=== PATIENT | female | born 1960 | race African-American/Black ===

== ENCOUNTER → 2018-03-08 | Outpatient (CLI) | payer OTHER ==
[2014-11-26 11:00] VITALS: BP 130/84
[~2018-03-08] MED LIST: AMLO10TA6 PO; AZIT250T6 PO; BACL10TA PO; BACL20TA PO; CALC-299 PO; CALC-53 PO; CHLO500T53 PO; CLON0.1T PO; CLON0.2T PO; DOXY100C2 PO; DULO20CA PO; FLUT100D IH; FLUT1DIS3 IH; GABA-586 PO; GUAI600T47 PO; HYDR12.58 PO; LORA10TA68 PO; MECL25TA3 PO; METH-37 PO; MONT10TA9 PO; NAPR-683 PO; OXYB5TAB7 PO; PANT40TA3 PO; PRED10TA16 PO; PROAIR HFA8.5 GM INH; SERT100T PO; SERT50TA PO; SIMV10TA3 PO; SULF1TAB24 PO
--- NOTE | 2018-03-13 10:09 | KCIC ---
Bilateral digital screening mammograms: Reason for examination: Routine screening. Comparison is made to previous study dated 02/12/2014. Interpretation was made with the benefit of CAD. The skin and nipples show no abnormalities. No abnormal axillary lymph nodes are seen. The breast parenchyma is heterogeneously dense. (Breast density: Category C.) There are no dominant masses, suspicious calcifications or architectural distortion. There are benign secretory type calcifications present. Impression: No evidence of malignancy. Recommend routine screening. Your patient's mammogram demonstrates that she has dense breast tissue (breast density category C or D), which could hide abnormalities, and if she has other risk factors for breast cancer that have been identified, she might benefit from supplemental screening tests that may be suggested by you as her ordering physician. Dense breast tissue, in and of itself, is a relatively common condition. Therefore, this information is not provided to cause undue concern, but rather to raise your awareness and to promote discussion with your patient regarding the presence of other risk factors, in addition to dense breast tissue. Your patient's mammography results will be sent to her. BI-RAD Category 2: Benign. "Our facility is accredited by the [employer] Mammography Program." This patient's information has been entered into a reminder system for the patient to be notified with the results of her examination and a target date for the next mammogram. Electronically signed by: Sonam Cutler MD (03/13/2018 10:06 AM) [id number]
== END | disposition home or self-care (01) ==
LOC: KCIC MAMMO 12:34
PROVIDERS: ATTEND Internal Medicine
DX: Z12.31 Encounter for screening mammogram for malignant neoplasm of breast (principal)
CPT/HCPCS: 77067

== ENCOUNTER 2018-09-19 15:51 | Inpatient (IN) | payer OTHER ==
[~2018-09-19] VITALS: Ht 160 cm; Wt 114.0 kg
[~2018-09-19 15:51] MED LIST changes: +ALBU2.5V8 INH; -AMLO10TA6 PO; +AMLO10TA8 PO; -GABA-586 PO; +GABA300C18 PO; -PROAIR HFA8.5 GM INH
--- NOTE | 2018-09-19 16:13 | EKG ---
[facility] [address] [place] [address] Test Date: 2018-09-19 Test Time: 15:58:20 Pat Name: ERIBERTO OLEA Department: Room: Gender: F [employer]: : 1960 Requested By: JULES MCKOY Order Number: [id number] Reading MD: Lalit Santos MD Measurements Intervals [place] Rate: 64 P: 48 WA: 168 QRS: 19 QRSD: 84 T: 16 QT: 416 QTc: 433 Interpretive Statements SINUS RHYTHM Electronically Signed On 09-20-2018 22:17:42 CDT by Lalit Santos MD
--- NOTE | 2018-09-19 16:20 | PHYS DOC ---
Past Medical History Past Medical History: Anxiety, Bronchitis, Depression, Fibromyalgia, GERD, High Cholesterol, Hypertension (JULES MCKOY APRN) Past Surgical History: Other Additional Past Surgical Histo: NECK (DISC) REPAIR, recent colonoscopy (JULES MCKOY APRN) Alcohol Use: None Drug Use: None (JULES MCKOY APRN) Adult General Chief Complaint Chief Complaint: CHEST PAIN HPI HPI 57-year-old female presents to ER via POV for complaints of sudden onset of left-sided chest pain under her left breast which started one hour prior to arrival to ER. She reports she was at her father's doctor's appointment with him when the chest pain started. She was evaluated by the doctor in the office and had a nitroglycerin and aspirin 325 mg administered. EMS was called and she was told her heart rhythm looked okay. Patient states she had some improvement in pain following nitroglycerin. Initial blood pressure when pain started was 190/70 and after nitroglycerin right EMS her blood pressure dropped to 105/78 with heart rate of 76 per report sent with her by EMS. She opted to drive herself to the ER as her pain had somewhat improved. Patient denies shortness of air or abdominal pain. She reports she did have nausea during onset of pain denies any vomiting episodes. (JULES MCKOY APRN) Review of Systems Review of Systems Constitutional: Denies fever or chills [] Eyes: Denies change in visual acuity, redness, or eye pain [] HENT: Denies nasal congestion or sore throat [] Respiratory: Denies cough or shortness of breath [] Cardiovascular: Reports lt side CP radiating into lt side upper/mid back GI: Denies abdominal pain, vomiting, bloody stools or diarrhea. Reports nausea : Denies dysuria or hematuria [] Musculoskeletal: Denies joint pain. Reports lt upper/mid side back pain Integument: Denies rash or skin lesions [] Neurologic: Denies headache, focal weakness or sensory changes. Denies dizziness Endocrine: Denies polyuria or polydipsia [] All other systems were reviewed and found to be within normal limits, except as documented in this note. (JULES MCKOY APRN) Current Medications Current Medications Current Medications Medications (Trade) Dose Ordered Sig/Keshia Start Time Stop Time Status Last Admin Dose Admin Fentanyl Citrate (Fentanyl 2ml Vial) 25 mcg 1X ONCE 09/19/18 16:45 09/19/18 16:46 DC 09/19/18 16:59 25 MCG (JOHNNIE HARMON MD) Allergies Allergies Allergies Coded Allergies Type Severity Reaction Last Updated Verified lisinopril Allergy Severe Anaphylaxis 11/26/14 Yes ciprofloxacin Allergy Intermediate Rash 11/26/14 Yes (JOHNNIE HARMON MD) Physical Exam Physical Exam Constitutional: Well developed, well nourished, no acute distress, non-toxic appearance. [] HENT: Normocephalic, atraumatic, oropharynx moist, nose normal. [] Eyes: Pupils equal, conjunctiva normal, no discharge. [] Neck: Normal range of motion, no tenderness, supple, no stridor. [] Cardiovascular: Heart rate regular rhythm, no murmur [] Lungs & Thorax: Bilateral breath sounds clear to auscultation. Resp. equa l/nonlabored Abdomen: Bowel sounds normal, soft/obese, no tenderness, no masses, no pulsatile masses. [] Skin: Warm, dry, no erythema, no rash. [] Back: No tenderness, no CVA tenderness. [] Extremities: No tenderness, no cyanosis, no clubbing, ROM intact, no edema. 2+ bilat. radial. 2+ bilat. dorsalis pedis/posterior tibial Neurologic: Alert and oriented X 3, normal motor function, normal sensory function, no focal deficits noted. [] Psychologic: Affect normal, judgement normal, mood normal. [] (REFFITT,JULES Dyer APRN) Current Patient Data Vital Signs Vital Signs Date Time Temp Pulse Resp B/P (MAP) Pulse Ox O2 Delivery O2 Flow Rate FiO2 09/19/18 16:30 80 167/73 (104) 96 Room Air 09/19/18 15:55 98.9 16 98.9 (JOHNNIE HARMON MD) Lab Values Laboratory Tests Test 09/19/18 16:25 Urine Collection Type Void Urine Color Yellow Urine Clarity Clear Urine pH 5.5 Urine Specific [place] 1.015 Urine Protein Negative mg/dL (NEG-TRACE) Urine Glucose (UA) Negative mg/dL (NEG) Urine Ketones (Stick) Negative mg/dL (NEG) Urine Blood Negative (NEG) Urine Nitrite Negative (NEG) Urine Bilirubin Negative (NEG) Urine Urobilinogen Dipstick 0.2 mg/dL (0.2 mg/dL) Urine Leukocyte Esterase Negative (NEG) Urine RBC 0 /HPF (0-2) Urine WBC Occ /HPF (0-4) Urine Squamous Epithelial Cells Few /LPF Urine Bacteria 0 /HPF (0-FEW) Urine Mucus Slight /LPF (JOHNNIE HARMON MD) Lab Values Laboratory Tests Test 09/19/18 16:25 09/19/18 17:20 Urine Collection Type Void Urine Color Yellow Urine Clarity Clear Urine pH 5.5 Urine Specific [place] 1.015 Urine Protein Negative mg/dL (NEG-TRACE) Urine Glucose (UA) Negative mg/dL (NEG) Urine Ketones (Stick) Negative mg/dL (NEG) Urine Blood Negative (NEG) Urine Nitrite Negative (NEG) Urine Bilirubin Negative (NEG) Urine Urobilinogen Dipstick 0.2 mg/dL (0.2 mg/dL) Urine Leukocyte Esterase Negative (NEG) Urine RBC 0 /HPF (0-2) Urine WBC Occ /HPF (0-4) Urine Squamous Epithelial Cells Few /LPF Urine Bacteria 0 /HPF (0-FEW) Urine Mucus Slight /LPF White Blood Count 4.0 x10^3/uL (4.0-11.0) Red Blood Count 5.21 x10^6/uL (3.50-5.40) Hemoglobin 14.5 g/dL (12.0-15.5) Hematocrit 42.8 % (36.0-47.0) Mean Corpuscular Volume 82 fL (79-100) Mean Corpuscular Hemoglobin 28 pg (25-35) Mean Corpuscular Hemoglobin Concent 34 g/dL (31-37) Red Cell Distribution Width 14.8 % (11.5-14.5) H Platelet Count 169 x10^3/uL (140-400) Neutrophils (%) (Auto) 50 % (31-73) Lymphocytes (%) (Auto) 36 % (24-48) Monocytes (%) (Auto) 11 % (0-9) H Eosinophils (%) (Auto) 2 % (0-3) Basophils (%) (Auto) 1 % (0-3) Neutrophils # (Auto) 2.0 x10^3uL (1.8-7.7) Lymphocytes # (Auto) 1.5 x10^3/uL (1.0-4.8) Monocytes # (Auto) 0.4 x10^3/uL (0.0-1.1) Eosinophils # (Auto) 0.1 x10^3/uL (0.0-0.7) Basophils # (Auto) 0.0 x10^3/uL (0.0-0.2) Sodium Level 144 mmol/L (136-145) Potassium Level 3.4 mmol/L (3.5-5.1) L Chloride Level 105 mmol/L (98-107) Carbon Dioxide Level 27 mmol/L (21-32) Anion Gap 12 (6-14) Blood Urea Nitrogen 13 mg/dL (7-20) Creatinine 1.0 mg/dL (0.6-1.0) Estimated GFR (Cockcroft-Gault) 68.7 BUN/Creatinine Ratio 13 (6-20) Glucose Level 91 mg/dL (70-99) Calcium Level 9.4 mg/dL (8.5-10.1) Magnesium Level 2.3 mg/dL (1.8-2.4) Total Bilirubin 0.3 mg/dL (0.2-1.0) Aspartate Amino Transferase (AST) 15 U/L (15-37) Alanine Aminotransferase (ALT) 15 U/L (14-59) Alkaline Phosphatase 64 U/L (46-116) Troponin I Quantitative < 0.017 ng/mL (0.000-0.055) Total Protein 6.8 g/dL (6.4-8.2) Albumin 3.9 g/dL (3.4-5.0) Albumin/Globulin Ratio 1.3 (1.0-1.7) Laboratory Tests 09/19/18 17:20 Laboratory Tests 09/19/18 17:20 (JULES MCKOY APRN) EKG EKG EKG obtained 09/19/18 at [address] Harmon Sinus rhythm Rate 64 No STEMI (JULES MCKOY APRN) Radiology/Procedures Radiology/Procedures PROCEDURE: CHEST PA & LATERAL PA and lateral chest radiographs 09/19/2018 CLINICAL HISTORY: Left-sided chest pain. PA and lateral digital radiographs of chest were obtained. Comparison study is dated 11/24/2014. The cardiac silhouette is normal in size. The thoracic aorta is tortuous. Calcified left hilar lymph nodes are again seen. No acute pulmonary infiltrate is noted. No pneumothorax or pleural effusion is seen. Mild degenerative changes are seen involving the thoracic spine. IMPRESSION: No acute abnormality is seen. Electronically signed by: Abdirahman Kimball MD (09/19/2018 5:53 PM) [facility] DICTATED and SIGNED BY: ABDIRAHMAN KIMBALL MD DATE: 09/19/18 3886 (JULES MCKOY APRN) Course & Med Decision Making Course & Med Decision Making Pertinent Labs and Imaging studies reviewed. (See chart for details) Pt was evaluated in the ER for complaints of sudden onset left-sided chest pain which started an hour before arriving to ER. Patient states pain did radiate up into the left side of her back. Patient had chest x-ray with no acute findings. EKG with no acute ST elevation or STEMI. Initial troponin was negative. Discu ssed admission for serial cardiac enzymes patient was agreeable with this plan. Patient was given aspirin dose prior to arrival. Patient had nitroglycerin prior to arrival which significantly dropped her blood pressure from 190 systolic to 105. Dose of fentanyl was provided while in the ER for pain. Patient states she has had improvement in comfort. Patient has been nontoxic in appearance. Will ad tino to hospitalist for further care and monitoring. 1735: Spoke with Dr. Shin, hospitalist and discussed pt's case and admit plan for serial cardiac enzymes/further monitoring. HEART score 3. (JULES MCKOY APRN) Course & Med Decision Making This patient was seen by an BECKA. I did not see or treat the patient unless otherwise specified. (JOHNNIE HARMON MD) Dragon Disclaimer Dragon Disclaimer This electronic medical record was generated, in whole or in part, using a voice recognition dictation system. (JULES MCKOY APRN) Departure Departure Impression: Primary Impression: Chest pain Disposition: 09 ADMITTED INPATIENT Admitting Physician: Lissy Shin (JULES MCKOY APRN) Condition: STABLE Referrals: GAGE MALIK MD (PCP) JULES MCKOY APRN September 19, 2018 16:20 JOHNNIE HARMON MD September 20, 2018 13:58
[2018-09-19 16:40] LABS: BILIRUBIN,URINE NEGATIVE (NEG); CLARITY,URINE CLEAR; COLOR,URINE YELLOW; NITRITE,URINE NEGATIVE (NEG); PH,URINE 5.5; PROTEIN,URINE NEGATIVE (NEG-TRACE); UROBILINOGEN,URINE 0.2 mg/dL (0.2 mg/dL)
[2018-09-19] MEDS ORDERED: fentaNYL PF VIAL 100 MCG/2 ML VIAL IV ONE (16:45)
[2018-09-19 17:24] LABS: BACTERIA,URINE 0 /HPF (0-FEW); RBC,URINE 0 /HPF (0-2); SQUAMOUS EPITHELIAL CELL,UR FEW /LPF; WBC,URINE OCC /HPF (0-4)
[2018-09-19 17:26] LABS: BASO % 1 % (0-3); EOS # 0.1 x10^3/uL (0.0-0.7); EOS % 2 % (0-3); HEMATOCRIT 42.8 % (36.0-47.0); HEMOGLOBIN 14.5 g/dL (12.0-15.5); LYMPH # 1.5 x10^3/uL (1.0-4.8); LYMPH % 36 % (24-48); MEAN CORPUSCULAR HEMOGLOBIN 28 pg (25-35); MEAN CORPUSCULAR HGB CONC 34 g/dL (31-37); MEAN CORPUSCULAR VOLUME 82 fL (79-100); MONO # 0.4 x10^3/uL (0.0-1.1); MONO % 11 % (0-9); NEUT % 50 % (31-73); PLATELET COUNT 169 x10^3/uL (140-400); RED BLOOD COUNT 5.21 x10^6/uL (3.50-5.40); RED CELL DISTRIBUTION WIDTH 14.8 % (11.5-14.5)
[2018-09-19 17:39] LABS: CALCIUM 9.4 mg/dL (8.5-10.1); GFR 68.7; POTASSIUM 3.4 mmol/L (3.5-5.1)
[2018-09-19 17:44] LABS: ALBUMIN 3.9 g/dL (3.4-5.0); ALBUMIN/GLOBULIN RATIO 1.3 (1.0-1.7); MAGNESIUM 2.3 mg/dL (1.8-2.4); TOTAL BILIRUBIN 0.3 mg/dL (0.2-1.0); TOTAL PROTEIN 6.8 g/dL (6.4-8.2)
--- NOTE | 2018-09-19 17:56 | RAD ---
PA and lateral chest radiographs 09/19/2018 CLINICAL HISTORY: Left-sided chest pain. PA and lateral digital radiographs of chest were obtained. Comparison study is dated 11/24/2014. The cardiac silhouette is normal in size. The thoracic aorta is tortuous. Calcified left hilar lymph nodes are again seen. No acute pulmonary infiltrate is noted. No pneumothorax or pleural effusion is seen. Mild degenerative changes are seen involving the thoracic spine. IMPRESSION: No acute abnormality is seen. Electronically signed by: Abdirahman Kimball MD (09/19/2018 5:53 PM) [facility]
[2018-09-19 19:55] VITALS: BP 167/99
[2018-09-19] MEDS ORDERED: OXYB5TAB PO (20:14)
[2018-09-19] MEDS ORDERED: AMLO5TAB10 PO (20:14)
[2018-09-19] MEDS ORDERED: TIZA2TAB PO (20:14)
[2018-09-19] MEDS ORDERED: SIMV20TA3 PO (20:14)
[2018-09-19] MEDS ORDERED: SERT100T8 PO (20:14)
[2018-09-19] MEDS ORDERED: GABA800T5 PO (20:14)
[2018-09-19] MEDS ORDERED: HYDR25TA10 PO (20:14)
[2018-09-19] MEDS ORDERED: TRAZ-118 PO (20:14)
[2018-09-19] MEDS ORDERED: POTA10TA PO (20:14)
[2018-09-19] MEDS ORDERED: PATCH REMOVAL. MC SCH (21:00)
[2018-09-19] MEDS ORDERED: tiZANidine 4 MG TABLET. PO PRN (21:30)
[2018-09-19] MEDS ORDERED: traZODone 50 MG TABLET. PO PRN (21:30)
[2018-09-19] MEDS: GABAPENTIN 400 MG CAPSULE. PO SCH (21:39)
--- NOTE | 2018-09-19 21:39 | PDOC1 ---
History and Physical Date of Admission Date of Admission DATE: 09/19/18 TIME: 21:32 Identification/Chief Complaint Chief Complaint chest pain Source Source: Chart review, Patient History of Present Illness History of Present Illness Ms. Tanner 57-year-old female admti with new chest pain. deep pain to chest wtih pressue and dyspnea without nausea. She has other pain complaints, has fibromyalgia and left upper chest hurts to touch, she also has worsening stress with her ill father and her . Her pain was sudden eft-sided chest pain under her left breast, started in Dr. Phillips office. asa given, nitro, dropped her bp markedly she feels improved now Past Medical History Cardiovascular: HTN, Hyperlipidemia Pulmonary: Bronchitis, COPD CENTRAL NERVOUS SYSTEM: Other GI: GERD, Peptic Ulcer disease, Other Heme/Onc: No pertinent hx Hepatobiliary: No pertinent hx Psych: Anxiety, Depression Musculoskeletal: Osteoarthritis Rheumatologic: Fibromyalgia Infectious disease: No pertinent hx Renal/: UTI, Urinary Incontinence Endocrine: Diabetes Past Surgical History Past Surgical History: Other Family History Family History: Coronary Artery Disease Family History: Other Social History Smoke: No ALCOHOL: rare Drugs: None Current Problem List Problem List Problems Medical Problems: (1) Chest pain Status: Acute Current Medications Current Medications Current Medications Fentanyl Citrate (Fentanyl 2ml Vial) 25 mcg 1X ONCE IV Last administered on 09/19/18at 16:59; Start 09/19/18 at 16:45; Stop 09/19/18 at 16:46; Status DC Amlodipine Besylate (Norvasc) 5 mg DAILY PO ; Start 09/20/18 at 09:00 Hydrochlorothiazide (Hydrodiuril) 25 mg DAILY PO ; Start 09/20/18 at 09:00 Gabapentin (Neurontin) 800 mg TID PO ; Start 09/19/18 at 22:00 Montelukast Sodium (Singulair) 10 mg QHS PO ; Start 09/19/18 at 22:00 Oxybutynin Chloride (Ditropan) 5 mg DAILY PO ; Start 09/20/18 at 09:00 Potassium Chloride (Klor-Con) 10 meq DAILYWBKFT PO ; Start 09/20/18 at 08:00 Sertraline HCl (Zoloft) 150 mg DAILY PO ; Start 09/20/18 at 09:00 Simvastatin (Zocor) 20 mg HS PO ; Start 09/19/18 at 22:00 Tizanidine HCl (Zanaflex) 2 mg PRN BID PRN PO MUSCLE SPASMS; Start 09/19/18 at 21:30 Trazodone HCl (Desyrel) 50 mg PRN QHS PRN PO INSOMNIA; Start 09/19/18 at 21:30 Active Scripts Active Reported K-Tab (Potassium Chloride) 10 Meq Tablet.er 10 Meq PO DAILY Trazodone Hcl 50 Mg Tablet 50 Mg PO PRN QHS Oxybutynin Chloride Er (Oxybutynin Chloride) 5 Mg Tab.er.24 5 Mg PO DAILY Gabapentin 800 Mg Tablet 800 Mg PO TID Hydrochlorothiazide 25 Mg Tablet 25 Mg PO DAILY Tizanidine Hcl 2 Mg Tablet 2 Mg PO PRN BID Sertraline Hcl 100 Mg Tablet 150 Mg PO DAILY Amlodipine Besylate 5 Mg Tablet 5 Mg PO DAILY Simvastatin 20 Mg Tablet 20 Mg PO DAILY Montelukast Sodium Tablet (Montelukast Sodium) 10 Mg Tablet 1 Tab PO DAILY Allergies Allergies: Coded Allergies: lisinopril (Verified Allergy, Severe, Anaphylaxis, 11/26/14) ciprofloxacin (Verified Allergy, Intermediate, Rash, 11/26/14) ROS General: No: Chills, Night Sweats, Fatigue, Malaise, Appetite, Other PSYCHOLOGICAL ROS: No: Anxiety, Behavioral Disorder, Concentration difficultie, Decreased libido, Depression, Disorientation, Hallucinations, Hostility, Irritablity, Memory difficulties, Mood Swings, Obsessive thoughts, Physical abuse, Sexual abuse, Sleep disturbances, Suicidal ideation, Other Eyes: No Blurry vision, No Decreased vision, No Double vision, No Dry eyes, No Excessive tearing, No Eye Pain, No Itchy Eyes, No Loss of vision, No Photophobia, No Scotomata, No Uses contacts, No Uses glasses, No Other HEENT: No: Heacaches, Visual Changes, Hearing change, Nasal congestion, Nasal discharge, Oral lesions, Sinus pain, Sore Throat, Epistaxis, Sneezing, Snoring, Tinnitus, Vertigo, Vocal changes, Other Respiratory: No: Cough, Hemoptysis, Orthopnea, Pleuritic Pain, Shortness of breath, SOB with excertion, Sputum Changes, Stridor, Tachypnea, Wheezing, Other Cardiovascular: No Chest Pain, No Palpitations, No Orthopnea, No Paroxysmal Noc. Dyspnea, No Edema, No Lt Headedness, No Other Gastrointestinal: No Nausea, No Vomiting, No Abdominal Pain, No Diarrhea, No Constipation, No Melena, No Hematochezia, No Other Genitourinary: No Dysuria, No Frequency, No Incontinence, No Hematuria, No Retention, No Discharge, No Urgency, No Pain, No Flank Pain, No Other, No , No , No , No , No , No , No Musculoskeletal: Yes Gait Disturbance, Yes Joint Pain, Yes Joint Stiffness, Yes Joint Swelling, Yes Muscle Pain, Yes Muscular Weakness, Yes Pain In: (feet, chest, legs); No Swelling In:, No Other Neurological: Yes Weakness; No Behavorial Changes, No Bowel/Bladder ControlChng, No Confusion, No Dizziness, No Gait Disturbance, No Headaches, No Impaired Coord/balance, No Memory Loss, No Numbness/Tingling, No Seizures, No Speech Problems, No Tremors, No Visual Changes, No Other Skin: Yes Dry Skin; No Eczema, No Hair Changes, No Lumps, No Mole Changes, No Mottling, No Nail Changes, No Pruritus, No Rash, No Skin Lesion Changes, No Other, No Acne Physical Exam General: Alert, Oriented X3, Cooperative, mild distress HEENT: Atraumatic, PERRLA, EOMI, Mucous membr. moist/pink Lungs: Clear to auscultation, Normal air movement Heart: RRR, no gallops, no murmurs, other (pain to palpation of chest, allodynia) Abdomen: Normal bowel sounds, Soft Rectal Exam: not examined Extremities: No cyanosis, No edema, Other (reproducible pain to feet, legs, trigger points) Skin: No rashes, No breakdown, No significant lesion Neuro: Normal speech, Sensation intact Psych/Mental Status: Mood NL Vitals Vitals Vital Signs Date Time Temp Pulse Resp B/P (MAP) Pulse Ox O2 Delivery O2 Flow Rate FiO2 09/19/18 19:55 97.8 68 18 167/99 (121) 96 Room Air 97.8 Labs Labs Laboratory Tests Test 09/19/18 16:25 09/19/18 17:20 Urine Collection Type Void Urine Color Yellow Urine Clarity Clear Urine pH 5.5 Urine Specific [place] 1.015 Urine Protein Negative mg/dL (NEG-TRACE) Urine Glucose (UA) Negative mg/dL (NEG) Urine Ketones (Stick) Negative mg/dL (NEG) Urine Blood Negative (NEG) Urine Nitrite Negative (NEG) Urine Bilirubin Negative (NEG) Urine Urobilinogen Dipstick 0.2 mg/dL (0.2 mg/dL) Urine Leukocyte Esterase Negative (NEG) Urine RBC 0 /HPF (0-2) Urine WBC Occ /HPF (0-4) Urine Squamous Epithelial Cells Few /LPF Urine Bacteria 0 /HPF (0-FEW) Urine Mucus Slight /LPF White Blood Count 4.0 x10^3/uL (4.0-11.0) Red Blood Count 5.21 x10^6/uL (3.50-5.40) Hemoglobin 14.5 g/dL (12.0-15.5) Hematocrit 42.8 % (36.0-47.0) Mean Corpuscular Volume 82 fL (79-100) Mean Corpuscular Hemoglobin 28 pg (25-35) Mean Corpuscular Hemoglobin Concent 34 g/dL (31-37) Red Cell Distribution Width 14.8 % (11.5-14.5) Platelet Count 169 x10^3/uL (140-400) Neutrophils (%) (Auto) 50 % (31-73) Lymphocytes (%) (Auto) 36 % (24-48) Monocytes (%) (Auto) 11 % (0-9) Eosinophils (%) (Auto) 2 % (0-3) Basophils (%) (Auto) 1 % (0-3) Neutrophils # (Auto) 2.0 x10^3uL (1.8-7.7) Lymphocytes # (Auto) 1.5 x10^3/uL (1.0-4.8) Monocytes # (Auto) 0.4 x10^3/uL (0.0-1.1) Eosinophils # (Auto) 0.1 x10^3/uL (0.0-0.7) Basophils # (Auto) 0.0 x10^3/uL (0.0-0.2) Sodium Level 144 mmol/L (136-145) Potassium Level 3.4 mmol/L (3.5-5.1) Chloride Level 105 mmol/L (98-107) Carbon Dioxide Level 27 mmol/L (21-32) Anion Gap 12 (6-14) Blood Urea Nitrogen 13 mg/dL (7-20) Creatinine 1.0 mg/dL (0.6-1.0) Estimated GFR (Cockcroft-Gault) 68.7 BUN/Creatinine Ratio 13 (6-20) Glucose Level 91 mg/dL (70-99) Calcium Level 9.4 mg/dL (8.5-10.1) Magnesium Level 2.3 mg/dL (1.8-2.4) Total Bilirubin 0.3 mg/dL (0.2-1.0) Aspartate Amino Transf (AST/SGOT) 15 U/L (15-37) Alanine Aminotransferase (ALT/SGPT) 15 U/L (14-59) Alkaline Phosphatase 64 U/L (46-116) Troponin I Quantitative < 0.017 ng/mL (0.000-0.055) Total Protein 6.8 g/dL (6.4-8.2) Albumin 3.9 g/dL (3.4-5.0) Albumin/Globulin Ratio 1.3 (1.0-1.7) Laboratory Tests Test 09/19/18 16:25 09/19/18 17:20 Urine Collection Type Void Urine Color Yellow Urine Clarity Clear Urine pH 5.5 Urine Specific [place] 1.015 Urine Protein Negative mg/dL (NEG-TRACE) Urine Glucose (UA) Negative mg/dL (NEG) Urine Ketones (Stick) Negative mg/dL (NEG) Urine Blood Negative (NEG) Urine Nitrite Negative (NEG) Urine Bilirubin Negative (NEG) Urine Urobilinogen Dipstick 0.2 mg/dL (0.2 mg/dL) Urine Leukocyte Esterase Negative (NEG) Urine RBC 0 /HPF (0-2) Urine WBC Occ /HPF (0-4) Urine Squamous Epithelial Cells Few /LPF Urine Bacteria 0 /HPF (0-FEW) Urine Mucus Slight /LPF White Blood Count 4.0 x10^3/uL (4.0-11.0) Red Blood Count 5.21 x10^6/uL (3.50-5.40) Hemoglobin 14.5 g/dL (12.0-15.5) Hematocrit 42.8 % (36.0-47.0) Mean Corpuscular Volume 82 fL (79-100) Mean Corpuscular Hemoglobin 28 pg (25-35) Mean Corpuscular Hemoglobin Concent 34 g/dL (31-37) Red Cell Distribution Width 14.8 % (11.5-14.5) Platelet Count 169 x10^3/uL (140-400) Neutrophils (%) (Auto) 50 % (31-73) Lymphocytes (%) (Auto) 36 % (24-48) Monocytes (%) (Auto) 11 % (0-9) Eosinophils (%) (Auto) 2 % (0-3) Basophils (%) (Auto) 1 % (0-3) Neutrophils # (Auto) 2.0 x10^3uL (1.8-7.7) Lymphocytes # (Auto) 1.5 x10^3/uL (1.0-4.8) Monocytes # (Auto) 0.4 x10^3/uL (0.0-1.1) Eosinophils # (Auto) 0.1 x10^3/uL (0.0-0.7) Basophils # (Auto) 0.0 x10^3/uL (0.0-0.2) Sodium Level 144 mmol/L (136-145) Potassium Level 3.4 mmol/L (3.5-5.1) Chloride Level 105 mmol/L (98-107) Carbon Dioxide Level 27 mmol/L (21-32) Anion Gap 12 (6-14) Blood Urea Nitrogen 13 mg/dL (7-20) Creatinine 1.0 mg/dL (0.6-1.0) Estimated GFR (Cockcroft-Gault) 68.7 BUN/Creatinine Ratio 13 (6-20) Glucose Level 91 mg/dL (70-99) Calcium Level 9.4 mg/dL (8.5-10.1) Magnesium Level 2.3 mg/dL (1.8-2.4) Total Bilirubin 0.3 mg/dL (0.2-1.0) Aspartate Amino Transf (AST/SGOT) 15 U/L (15-37) Alanine Aminotransferase (ALT/SGPT) 15 U/L (14-59) Alkaline Phosphatase 64 U/L (46-116) Troponin I Quantitative < 0.017 ng/mL (0.000-0.055) Total Protein 6.8 g/dL (6.4-8.2) Albumin 3.9 g/dL (3.4-5.0) Albumin/Globulin Ratio 1.3 (1.0-1.7) VTE Prophylaxis Ordered VTE Prophylaxis Devices: Yes VTE Pharmacological Prophylaxi: No Assessment/Plan Assessment/Plan chest pain, angina, r./o ACS also reproducible pain that she reports is very different than earlier chest pain, try lidoderm patch for costochondritis fibromyalgia, acuteon chronic pain. htn lipids morbid obesity, BMI 45 anxiety and depression hx GERD, start PPI JUSTYNA PULIDO MD September 19, 2018 21:39
[2018-09-19] MEDS ORDERED: MONTELUKAST SODIUM 10 MG TABLET. PO SCH (22:00)
[2018-09-19] MEDS ORDERED: PANTOPRAZOLE 40 MG TABLET.DR. PO ONE (22:00)
[2018-09-19] MEDS ORDERED: SIMVASTATIN 20 MG TABLET PO SCH (22:00)
[2018-09-19] MEDS ORDERED: LIDOCAINE (700MG/PATCH) PATCH. TD SCH (22:00)
[2018-09-19 23:15] VITALS: BP 137/82
--- NOTE | 2018-09-20 02:17 | NUR ---
Patient arrived to floor around 1937. VS stable, assessment complete. patient resting comfortably on RA, no complaints of pain at this time. Pt orientated to unit. call light with in reach. bed in low locked position.
[2018-09-20 03:25] VITALS: BP 139/81
[2018-09-20 07:00] VITALS: BP 143/81
[2018-09-20] MEDS ORDERED: PANTOPRAZOLE 40 MG TABLET.DR. PO SCH (07:30)
[2018-09-20] MEDS ORDERED: POTASSIUM CHLORIDE 10 MEQ TABLET.ER. PO SCH (08:00)
[2018-09-20 08:08] LABS: CHOLESTEROL/HDL RATIO 2.9
[2018-09-20] MEDS ORDERED: hydroCHLOROthiazide 25 MG TABLET PO SCH (09:00)
[2018-09-20] MEDS ORDERED: OXYBUTYNIN CHLORIDE 5 MG TABLET PO SCH (09:00)
[2018-09-20] MEDS ORDERED: amLODIPine BESYLATE 5 MG TABLET PO SCH (09:00)
[2018-09-20] MEDS ORDERED: PATCH REMOVAL. MC SCH (09:00)
[2018-09-20] MEDS ORDERED: SERTRALINE 50 MG TABLET. PO SCH (09:00)
[2018-09-20] MEDS: GABAPENTIN 400 MG CAPSULE. PO SCH ×2 (09:34→14:40)
[2018-09-20] MEDS ORDERED: OXYBUTYNIN CHLORIDE 5 MG TABLET ONE (09:35)
[2018-09-20] MEDS ORDERED: LIDOCAINE (700MG/PATCH) PATCH. ONE (09:39)
--- NOTE | 2018-09-20 10:20 | PDOC2 ---
VAUGHN NAIR SPECIFICATION CONSULTANT 09/20/18 1020: CARDIAC CONSULT DATE OF CONSULT Date of Consult DATE: 09/20/18 TIME: 10:16 REASON FOR CONSULT Reason for Consult: Chest pain REFERRING PHYSICIAN Referring Physician: Fullbright SOURCE Source: Chart review, Patient HISTORY OF PRESENT ILLNESS HISTORY OF PRESENT ILLNESS This is a pleasant 57 yo female admitted for complains of chest pain. Reports that she lives with her father and was taking her father to her PCP and at the office she started having sharp pain to her left midsternal chest. No SOA but does hurt when taking deep breath. She thought this was her fibromyalgia or GERD. Reports that when she presses her chest it radiates to her back and sometimes to her left ribcage region. No significnat HOWARD nor exertional CP. No nausea or vomiting. She also thought that because she ate something spicy for breakfast that this may have promoted this flair up. No recent heavy lifting, no recent falls or injury. Denies any palpitations but felt a little dizzy when this occurred and her BP was checked and her SBP was in the 200s and thought that she have skipped her med due to her father's appt. No prior VTE, CAD. She lost about 60 pounds in the last yr but gained about 20 pounds PAST MEDICAL HISTORY Cardiovascular: HTN, Hyperlipidemia Pulmonary: Bronchitis CENTRAL NERVOUS SYSTEM: Other (No pertinent history) GI: GERD Heme/Onc: No pertinent hx Psych: Anxiety Musculoskeletal: Osteoarthritis Rheumatologic: Fibromyalgia Infectious disease: No pertinent hx ENT: No pertinent hx Renal/: Urinary Incontinence Endocrine: No pertinent hx Dermatology: No pertinent hx PAST SURGICAL HISTORY Past Surgical History: Other (cervical fusion) FAMILY HISTORY Family History: Heart Disease (uncles) SOCIAL HISTORY Smoke: No ALCOHOL: none Drugs: None Lives: with Family CURRENT MEDICATIONS CURRENT MEDICATIONS Current Medications Medications (Trade) Dose Ordered Sig/Keshia Route PRN Reason Start Time Stop Time Status Last Admin Dose Admin Fentanyl Citrate (Fentanyl 2ml Vial) 25 mcg 1X ONCE IV 09/19/18 16:45 09/19/18 16:46 DC 09/19/18 16:59 Amlodipine Besylate (Norvasc) 5 mg DAILY PO 09/20/18 09:00 09/20/18 09:34 Hydrochlorothiazide (Hydrodiuril) 25 mg DAILY PO 09/20/18 09:00 09/20/18 09:35 Gabapentin (Neurontin) 800 mg TID PO 09/19/18 22:00 09/20/18 09:34 Montelukast Sodium (Singulair) 10 mg QHS PO 09/19/18 22:00 09/19/18 21:41 Oxybutynin Chloride (Ditropan) 5 mg DAILY PO 09/20/18 09:00 09/20/18 09:35 Potassium Chloride (Klor-Con) 10 meq DAILYWBKFT PO 09/20/18 08:00 09/20/18 09:36 Sertraline HCl (Zoloft) 150 mg DAILY PO 09/20/18 09:00 09/20/18 09:35 Simvastatin (Zocor) 20 mg HS PO 09/19/18 22:00 09/19/18 21:39 Tizanidine HCl (Zanaflex) 2 mg PRN BID PRN PO MUSCLE SPASMS 09/19/18 21:30 09/20/18 05:26 Trazodone HCl (Desyrel) 50 mg PRN QHS PRN PO INSOMNIA 09/19/18 21:30 09/19/18 22:42 Lidocaine (Lidoderm) 1 patch QHS TD 09/20/18 21:00 09/20/18 09:44 Pantoprazole Sodium (Protonix) 40 mg DAILYAC PO 09/20/18 07:30 09/20/18 09:36 Pantoprazole Sodium (Protonix) 40 mg 1X ONCE PO 09/19/18 22:00 09/19/18 22:01 DC 09/19/18 22:41 ALLERGIES ALLERGIES: Coded Allergies: lisinopril (Verified Allergy, Severe, Anaphylaxis, 11/26/14) ciprofloxacin (Verified Allergy, Intermediate, Rash, 11/26/14) ROS Review of System 14 point ROS evaluated with pertinent positives noted per HPI PHYSICAL EXAM General: Alert, Oriented X3, Cooperative, No acute distress HEENT: Atraumatic, Mucous membr. moist/pink Lungs: Clear to auscultation, Normal air movement Heart: Regular rate (SR significant ectopies), Normal S1, Normal S2, No murmurs Abdomen: Normal bowel sounds, Soft, No tenderness Extremities: No cyanosis, No edema Skin: No breakdown, No significant lesion Neuro: Normal speech, Sensation intact Psych/Mental Status: Mental status NL, Mood NL MUSCULOSKELETAL: Osteoarthritic changes both hands VITALS VITALS Vital Signs Date Time Temp Pulse Resp B/P (MAP) Pulse Ox O2 Delivery O2 Flow Rate FiO2 09/20/18 09:34 66 143/81 09/20/18 07:00 97.9 16 96 Room Air 97.9 LABS Lab: Laboratory Tests Test 09/19/18 16:25 09/19/18 17:20 09/20/18 03:10 09/20/18 07:45 Urine Collection Type Void Urine Color Yellow Urine Clarity Clear Urine pH 5.5 Urine Specific [place] 1.015 Urine Protein Negative mg/dL (NEG-TRACE) Urine Glucose (UA) Negative mg/dL (NEG) Urine Ketones (Stick) Negative mg/dL (NEG) Urine Blood Negative (NEG) Urine Nitrite Negative (NEG) Urine Bilirubin Negative (NEG) Urine Urobilinogen Dipstick 0.2 mg/dL (0.2 mg/dL) Urine Leukocyte Esterase Negative (NEG) Urine RBC 0 /HPF (0-2) Urine WBC Occ /HPF (0-4) Urine Squamous Epithelial Cells Few /LPF Urine Bacteria 0 /HPF (0-FEW) Urine Mucus Slight /LPF White Blood Count 4.0 x10^3/uL (4.0-11.0) Red Blood Count 5.21 x10^6/uL (3.50-5.40) Hemoglobin 14.5 g/dL (12.0-15.5) Hematocrit 42.8 % (36.0-47.0) Mean Corpuscular Volume 82 fL (79-100) Mean Corpuscular Hemoglobin 28 pg (25-35) Mean Corpuscular Hemoglobin Concent 34 g/dL (31-37) Red Cell Distribution Width 14.8 % (11.5-14.5) Platelet Count 169 x10^3/uL (140-400) Neutrophils (%) (Auto) 50 % (31-73) Lymphocytes (%) (Auto) 36 % (24-48) Monocytes (%) (Auto) 11 % (0-9) Eosinophils (%) (Auto) 2 % (0-3) Basophils (%) (Auto) 1 % (0-3) Neutrophils # (Auto) 2.0 x10^3uL (1.8-7.7) Lymphocytes # (Auto) 1.5 x10^3/uL (1.0-4.8) Monocytes # (Auto) 0.4 x10^3/uL (0.0-1.1) Eosinophils # (Auto) 0.1 x10^3/uL (0.0-0.7) Basophils # (Auto) 0.0 x10^3/uL (0.0-0.2) Sodium Level 144 mmol/L (136-145) Potassium Level 3.4 mmol/L (3.5-5.1) Chloride Level 105 mmol/L (98-107) Carbon Dioxide Level 27 mmol/L (21-32) Anion Gap 12 (6-14) Blood Urea Nitrogen 13 mg/dL (7-20) Creatinine 1.0 mg/dL (0.6-1.0) Estimated GFR (Cockcroft-Gault) 68.7 BUN/Creatinine Ratio 13 (6-20) Glucose Level 91 mg/dL (70-99) Calcium Level 9.4 mg/dL (8.5-10.1) Magnesium Level 2.3 mg/dL (1.8-2.4) Total Bilirubin 0.3 mg/dL (0.2-1.0) Aspartate Amino Transf (AST/SGOT) 15 U/L (15-37) Alanine Aminotransferase (ALT/SGPT) 15 U/L (14-59) Alkaline Phosphatase 64 U/L (46-116) Troponin I Quantitative < 0.017 ng/mL (0.000-0.055) < 0.017 ng/mL (0.000-0.055) < 0.017 ng/mL (0.000-0.055) Total Protein 6.8 g/dL (6.4-8.2) Albumin 3.9 g/dL (3.4-5.0) Albumin/Globulin Ratio 1.3 (1.0-1.7) Triglycerides Level 85 mg/dL (0-150) Cholesterol Level 187 mg/dL (0-200) LDL Cholesterol, Calculated 106 mg/dL (0-100) VLDL Cholesterol, Calculated 17 mg/dL (0-40) Non-HDL Cholesterol Calculated 123 mg/dL (0-129) HDL Cholesterol 64 mg/dL (40-60) Cholesterol/HDL Ratio 2.9 ECHOCARDIOGRAM ECHOCARDIOGRAM <Conclusion> Left ventricle systolic function is normal. The Ejection Fraction is estimated at 60-65%. There is normal LV segmental wall motion. Doppler and Color Flow revealed mild mitral regurgitation. Doppler and Color Flow revealed mild tricuspid regurgitation. The PA pressure was estimated at 25 mmHg. There is no evidence of significant pericardial effusion. DATE: 11/25/14 1705 ASSESSMENT/PLAN ASSESSMENT/PLAN 1. Atypical Chest pain: trops nml, EKG SR. Noncardiac, suspect MSK reproducible 2. HTN: better controlled 3. DLP 4. Morbid obesity 5. Hx of fibromyalgia Recommendations TTE, TSH Resume home BP meds, change statin to lipitor. Encouraged to purchase BP monitor and HBPM bid for 1 week and to call if ousdie parameter which her outpt PCP will manage Continue with exercise and wt loss. BRANDIE FLORES MD 09/20/18 1701: CARDIAC CONSULT ASSESSMENT/PLAN ASSESSMENT/PLAN Pt. seen and examined. Agree with above SLOT SUPERVISOR note. She has been stressed and not taking meds daily No chest pain with walking up hills. normal exam. normal echo/labs/ekg non-cardiac pain by symptoms and exam supportive care. ok to dc. thanks VAUGHN NAIR APRN September 20, 2018 10:20 BRANDIE FLORES MD September 20, 2018 22:18
--- NOTE | 2018-09-20 10:37 | PDOC ---
PROGRESS NOTES History of Present Illness History of Present Illness Assessment/Plan Assessment/Plan chest pain, angina, r./o ACS also reproducible pain that she reports is very different than earlier chest pain, try lidoderm patch for costochondritis fibromyalgia, acuteon chronic pain. htn lipids morbid obesity, BMI 45 anxiety and depression hx GERD, start PPI cardiology consult echo today Vitals Vitals Vital Signs Date Time Temp Pulse Resp B/P (MAP) Pulse Ox O2 Delivery O2 Flow Rate FiO2 09/20/18 09:34 66 143/81 09/20/18 07:00 97.9 16 96 Room Air 97.9 Physical Exam General: Alert, Oriented X3, Cooperative, mild distress Abdomen: Normal bowel sounds, Soft Extremities: No cyanosis, No edema, Other (reproducible pain to feet, legs, trigger points) Skin: No rashes, No breakdown, No significant lesion Labs LABS Laboratory Tests Test 09/19/18 16:25 09/19/18 17:20 09/20/18 03:10 09/20/18 07:45 Urine Collection Type Void Urine Color Yellow Urine Clarity Clear Urine pH 5.5 Urine Specific [place] 1.015 Urine Protein Negative mg/dL (NEG-TRACE) Urine Glucose (UA) Negative mg/dL (NEG) Urine Ketones (Stick) Negative mg/dL (NEG) Urine Blood Negative (NEG) Urine Nitrite Negative (NEG) Urine Bilirubin Negative (NEG) Urine Urobilinogen Dipstick 0.2 mg/dL (0.2 mg/dL) Urine Leukocyte Esterase Negative (NEG) Urine RBC 0 /HPF (0-2) Urine WBC Occ /HPF (0-4) Urine Squamous Epithelial Cells Few /LPF Urine Bacteria 0 /HPF (0-FEW) Urine Mucus Slight /LPF White Blood Count 4.0 x10^3/uL (4.0-11.0) Red Blood Count 5.21 x10^6/uL (3.50-5.40) Hemoglobin 14.5 g/dL (12.0-15.5) Hematocrit 42.8 % (36.0-47.0) Mean Corpuscular Volume 82 fL (79-100) Mean Corpuscular Hemoglobin 28 pg (25-35) Mean Corpuscular Hemoglobin Concent 34 g/dL (31-37) Red Cell Distribution Width 14.8 % (11.5-14.5) Platelet Count 169 x10^3/uL (140-400) Neutrophils (%) (Auto) 50 % (31-73) Lymphocytes (%) (Auto) 36 % (24-48) Monocytes (%) (Auto) 11 % (0-9) Eosinophils (%) (Auto) 2 % (0-3) Basophils (%) (Auto) 1 % (0-3) Neutrophils # (Auto) 2.0 x10^3uL (1.8-7.7) Lymphocytes # (Auto) 1.5 x10^3/uL (1.0-4.8) Monocytes # (Auto) 0.4 x10^3/uL (0.0-1.1) Eosinophils # (Auto) 0.1 x10^3/uL (0.0-0.7) Basophils # (Auto) 0.0 x10^3/uL (0.0-0.2) Sodium Level 144 mmol/L (136-145) Potassium Level 3.4 mmol/L (3.5-5.1) Chloride Level 105 mmol/L (98-107) Carbon Dioxide Level 27 mmol/L (21-32) Anion Gap 12 (6-14) Blood Urea Nitrogen 13 mg/dL (7-20) Creatinine 1.0 mg/dL (0.6-1.0) Estimated GFR (Cockcroft-Gault) 68.7 BUN/Creatinine Ratio 13 (6-20) Glucose Level 91 mg/dL (70-99) Calcium Level 9.4 mg/dL (8.5-10.1) Magnesium Level 2.3 mg/dL (1.8-2.4) Total Bilirubin 0.3 mg/dL (0.2-1.0) Aspartate Amino Transf (AST/SGOT) 15 U/L (15-37) Alanine Aminotransferase (ALT/SGPT) 15 U/L (14-59) Alkaline Phosphatase 64 U/L (46-116) Troponin I Quantitative < 0.017 ng/mL (0.000-0.055) < 0.017 ng/mL (0.000-0.055) < 0.017 ng/mL (0.000-0.055) Total Protein 6.8 g/dL (6.4-8.2) Albumin 3.9 g/dL (3.4-5.0) Albumin/Globulin Ratio 1.3 (1.0-1.7) Triglycerides Level 85 mg/dL (0-150) Cholesterol Level 187 mg/dL (0-200) LDL Cholesterol, Calculated 106 mg/dL (0-100) VLDL Cholesterol, Calculated 17 mg/dL (0-40) Non-HDL Cholesterol Calculated 123 mg/dL (0-129) HDL Cholesterol 64 mg/dL (40-60) Cholesterol/HDL Ratio 2.9 Assessment and Plan Assessmemt and Plan Problems Medical Problems: (1) Chest pain Status: Acute Comment Review of Relevant I have reviewed the following items tana (where applicable) has been applied. Labs Laboratory Tests Test 09/19/18 16:25 09/19/18 17:20 09/20/18 03:10 09/20/18 07:45 Urine Collection Type Void Urine Color Yellow Urine Clarity Clear Urine pH 5.5 Urine Specific [place] 1.015 Urine Protein Negative mg/dL (NEG-TRACE) Urine Glucose (UA) Negative mg/dL (NEG) Urine Ketones (Stick) Negative mg/dL (NEG) Urine Blood Negative (NEG) Urine Nitrite Negative (NEG) Urine Bilirubin Negative (NEG) Urine Urobilinogen Dipstick 0.2 mg/dL (0.2 mg/dL) Urine Leukocyte Esterase Negative (NEG) Urine RBC 0 /HPF (0-2) Urine WBC Occ /HPF (0-4) Urine Squamous Epithelial Cells Few /LPF Urine Bacteria 0 /HPF (0-FEW) Urine Mucus Slight /LPF White Blood Count 4.0 x10^3/uL (4.0-11.0) Red Blood Count 5.21 x10^6/uL (3.50-5.40) Hemoglobin 14.5 g/dL (12.0-15.5) Hematocrit 42.8 % (36.0-47.0) Mean Corpuscular Volume 82 fL (79-100) Mean Corpuscular Hemoglobin 28 pg (25-35) Mean Corpuscular Hemoglobin Concent 34 g/dL (31-37) Red Cell Distribution Width 14.8 % (11.5-14.5) Platelet Count 169 x10^3/uL (140-400) Neutrophils (%) (Auto) 50 % (31-73) Lymphocytes (%) (Auto) 36 % (24-48) Monocytes (%) (Auto) 11 % (0-9) Eosinophils (%) (Auto) 2 % (0-3) Basophils (%) (Auto) 1 % (0-3) Neutrophils # (Auto) 2.0 x10^3uL (1.8-7.7) Lymphocytes # (Auto) 1.5 x10^3/uL (1.0-4.8) Monocytes # (Auto) 0.4 x10^3/uL (0.0-1.1) Eosinophils # (Auto) 0.1 x10^3/uL (0.0-0.7) Basophils # (Auto) 0.0 x10^3/uL (0.0-0.2) Sodium Level 144 mmol/L (136-145) Potassium Level 3.4 mmol/L (3.5-5.1) Chloride Level 105 mmol/L (98-107) Carbon Dioxide Level 27 mmol/L (21-32) Anion Gap 12 (6-14) Blood Urea Nitrogen 13 mg/dL (7-20) Creatinine 1.0 mg/dL (0.6-1.0) Estimated GFR (Cockcroft-Gault) 68.7 BUN/Creatinine Ratio 13 (6-20) Glucose Level 91 mg/dL (70-99) Calcium Level 9.4 mg/dL (8.5-10.1) Magnesium Level 2.3 mg/dL (1.8-2.4) Total Bilirubin 0.3 mg/dL (0.2-1.0) Aspartate Amino Transf (AST/SGOT) 15 U/L (15-37) Alanine Aminotransferase (ALT/SGPT) 15 U/L (14-59) Alkaline Phosphatase 64 U/L (46-116) Troponin I Quantitative < 0.017 ng/mL (0.000-0.055) < 0.017 ng/mL (0.000-0.055) < 0.017 ng/mL (0.000-0.055) Total Protein 6.8 g/dL (6.4-8.2) Albumin 3.9 g/dL (3.4-5.0) Albumin/Globulin Ratio 1.3 (1.0-1.7) Triglycerides Level 85 mg/dL (0-150) Cholesterol Level 187 mg/dL (0-200) LDL Cholesterol, Calculated 106 mg/dL (0-100) VLDL Cholesterol, Calculated 17 mg/dL (0-40) Non-HDL Cholesterol Calculated 123 mg/dL (0-129) HDL Cholesterol 64 mg/dL (40-60) Cholesterol/HDL Ratio 2.9 Laboratory Tests Test 09/19/18 16:25 09/19/18 17:20 09/20/18 03:10 09/20/18 07:45 Urine Collection Type Void Urine Color Yellow Urine Clarity Clear Urine pH 5.5 Urine Specific [place] 1.015 Urine Protein Negative mg/dL (NEG-TRACE) Urine Glucose (UA) Negative mg/dL (NEG) Urine Ketones (Stick) Negative mg/dL (NEG) Urine Blood Negative (NEG) Urine Nitrite Negative (NEG) Urine Bilirubin Negative (NEG) Urine Urobilinogen Dipstick 0.2 mg/dL (0.2 mg/dL) Urine Leukocyte Esterase Negative (NEG) Urine RBC 0 /HPF (0-2) Urine WBC Occ /HPF (0-4) Urine Squamous Epithelial Cells Few /LPF Urine Bacteria 0 /HPF (0-FEW) Urine Mucus Slight /LPF White Blood Count 4.0 x10^3/uL (4.0-11.0) Red Blood Count 5.21 x10^6/uL (3.50-5.40) Hemoglobin 14.5 g/dL (12.0-15.5) Hematocrit 42.8 % (36.0-47.0) Mean Corpuscular Volume 82 fL (79-100) Mean Corpuscular Hemoglobin 28 pg (25-35) Mean Corpuscular Hemoglobin Concent 34 g/dL (31-37) Red Cell Distribution Width 14.8 % (11.5-14.5) Platelet Count 169 x10^3/uL (140-400) Neutrophils (%) (Auto) 50 % (31-73) Lymphocytes (%) (Auto) 36 % (24-48) Monocytes (%) (Auto) 11 % (0-9) Eosinophils (%) (Auto) 2 % (0-3) Basophils (%) (Auto) 1 % (0-3) Neutrophils # (Auto) 2.0 x10^3uL (1.8-7.7) Lymphocytes # (Auto) 1.5 x10^3/uL (1.0-4.8) Monocytes # (Auto) 0.4 x10^3/uL (0.0-1.1) Eosinophils # (Auto) 0.1 x10^3/uL (0.0-0.7) Basophils # (Auto) 0.0 x10^3/uL (0.0-0.2) Sodium Level 144 mmol/L (136-145) Potassium Level 3.4 mmol/L (3.5-5.1) Chloride Level 105 mmol/L (98-107) Carbon Dioxide Level 27 mmol/L (21-32) Anion Gap 12 (6-14) Blood Urea Nitrogen 13 mg/dL (7-20) Creatinine 1.0 mg/dL (0.6-1.0) Estimated GFR (Cockcroft-Gault) 68.7 BUN/Creatinine Ratio 13 (6-20) Glucose Level 91 mg/dL (70-99) Calcium Level 9.4 mg/dL (8.5-10.1) Magnesium Level 2.3 mg/dL (1.8-2.4) Total Bilirubin 0.3 mg/dL (0.2-1.0) Aspartate Amino Transf (AST/SGOT) 15 U/L (15-37) Alanine Aminotransferase (ALT/SGPT) 15 U/L (14-59) Alkaline Phosphatase 64 U/L (46-116) Troponin I Quantitative < 0.017 ng/mL (0.000-0.055) < 0.017 ng/mL (0.000-0.055) < 0.017 ng/mL (0.000-0.055) Total Protein 6.8 g/dL (6.4-8.2) Albumin 3.9 g/dL (3.4-5.0) Albumin/Globulin Ratio 1.3 (1.0-1.7) Triglycerides Level 85 mg/dL (0-150) Cholesterol Level 187 mg/dL (0-200) LDL Cholesterol, Calculated 106 mg/dL (0-100) VLDL Cholesterol, Calculated 17 mg/dL (0-40) Non-HDL Cholesterol Calculated 123 mg/dL (0-129) HDL Cholesterol 64 mg/dL (40-60) Cholesterol/HDL Ratio 2.9 Medications Current Medications Fentanyl Citrate (Fentanyl 2ml Vial) 25 mcg 1X ONCE IV Last administered on 09/19/18at 16:59; Start 09/19/18 at 16:45; Stop 09/19/18 at 16:46; Status DC Amlodipine Besylate (Norvasc) 5 mg DAILY PO Last administered on 09/20/18 09:34; Start 09/20/18 at 09:00 Hydrochlorothiazide (Hydrodiuril) 25 mg DAILY PO Last administered on 09/20/18 09:35; Start 09/20/18 at 09:00 Gabapentin (Neurontin) 800 mg TID PO Last administered on 09/20/18 09:34; Start 09/19/18 at 22:00 Montelukast Sodium (Singulair) 10 mg QHS PO Last administered on 09/19/18 21:41; Start 09/19/18 at 22:00 Oxybutynin Chloride (Ditropan) 5 mg DAILY PO Last administered on 09/20/18 09:35; Start 09/20/18 at 09:00 Potassium Chloride (Klor-Con) 10 meq DAILYWBKFT PO Last administered on 09:36; Start 09/20/18 at 08:00 Sertraline HCl (Zoloft) 150 mg DAILY PO Last administered on 09/20/18 09:35; Start 09/20/18 at 09:00 Simvastatin (Zocor) 20 mg HS PO Last administered on 09/19/18 21:39; Start 09/19/18 at 22:00 Tizanidine HCl (Zanaflex) 2 mg PRN BID PRN PO MUSCLE SPASMS Last administered on 09/20/18 05:26; Start 09/19/18 at 21:30 Trazodone HCl (Desyrel) 50 mg PRN QHS PRN PO INSOMNIA Last administered on 09/19/18 22:42; Start 09/19/18 at 21:30 Lidocaine (Lidoderm) 1 patch DAILY TD ; Start 09/19/18 at 22:00; Stop 09/19/18 at 22:00; Status DC Miscellaneous (Lidoderm Patch Removal) 1 ea QHS MC ; Start 09/19/18 at 21:00; Status Cancel Lidocaine (Lidoderm) 1 patch QHS TD Last administered on 09/20/18 09:44; Start 09/20/18 at 21:00 Miscellaneous (Lidoderm Patch Removal) 1 ea DAILY MC ; Start 09/20/18 at 09:00 Pantoprazole Sodium (Protonix) 40 mg DAILYAC PO Last administered on 09/20/18at 09:36; Start 09/20/18 at 07:30 Pantoprazole Sodium (Protonix) 40 mg 1X ONCE PO Last administered on 09/19/18at 22:41; Start 09/19/18 at 22:00; Stop 09/19/18 at 22:01; Status DC Lidocaine (Lidoderm) 1 patch STK-MED ONCE .ROUTE ; Start 09/20/18 at 09:39; Stop 09/20/18 at 09:40; Status DC Active Scripts Active Reported K-Tab (Potassium Chloride) 10 Meq Tablet.er 10 Meq PO DAILY Trazodone Hcl 50 Mg Tablet 50 Mg PO PRN QHS Oxybutynin Chloride Er (Oxybutynin Chloride) 5 Mg Tab.er.24 5 Mg PO DAILY Gabapentin 800 Mg Tablet 800 Mg PO TID Hydrochlorothiazide 25 Mg Tablet 25 Mg PO DAILY Tizanidine Hcl 2 Mg Tablet 2 Mg PO PRN BID Sertraline Hcl 100 Mg Tablet 150 Mg PO DAILY Amlodipine Besylate 5 Mg Tablet 5 Mg PO DAILY Simvastatin 20 Mg Tablet 20 Mg PO DAILY Montelukast Sodium Tablet (Montelukast Sodium) 10 Mg Tablet 1 Tab PO DAILY Vitals/I & O Vital Sign - Last 24 Hours 09/19/18 09/19/18 09/19/18 09/19/18 15:55 16:30 17:28 17:58 Temp 98.9 98.9 Pulse 72 80 75 62 Resp 16 B/P (MAP) 168/78 (108) 167/73 (104) 172/85 (114) 160/79 (106) Pulse Ox 99 96 98 97 O2 Delivery Room Air Room Air Room Air Room Air 09/19/18 09/19/18 09/19/18 09/19/18 18:58 19:38 19:55 23:15 Temp 97.8 98.1 97.8 98.1 Pulse 75 68 66 Resp 18 18 B/P (MAP) 165/78 (107) 167/99 (121) 137/82 (100) Pulse Ox 98 96 96 O2 Delivery Room Air Room Air Room Air Room Air 09/20/18 09/20/18 09/20/18 03:25 07:00 09:34 Temp 98.1 97.9 98.1 97.9 Pulse 57 66 66 Resp 18 16 B/P (MAP) 139/81 (100) 143/81 (101) 143/81 Pulse Ox 97 96 O2 Delivery Room Air Room Air Intake and Output 09/19/18 09/19/18 09/20/18 14:59 22:59 06:59 Intake Total 500 ml Output Total 200 ml 800 ml Balance -200 ml -300 ml YANDY WILLS MD September 20, 2018 10:37
[2018-09-20 11:00] VITALS: BP 135/75
--- NOTE | 2018-09-20 13:17 | NUR ---
SS following for discharge planning. SS reviewed pt chart. Pt is from home with spouse and is currently on room air. No discharge needs noted at this time. SS will continue to follow for discharge planning.
--- NOTE | 2018-09-20 14:40 | CARD ---
MR#: [id number] Date of Study: 09/20/2018 Ordering Physician: CHIDI ALFONSO, Referring Physician: JUSTYNA PULIDO Tech: Kirstin Layton RDCS APPROVED REPORT EXAM: Two-dimensional and M-mode echocardiogram with Doppler and color Doppler. Other Information Quality : Good INDICATION Chest Pain 2D DIMENSIONS RVDd2.3 (2.9-3.5cm)Left Atrium(2D)3.5 (1.6-4.0cm) IVSd0.9 (0.7-1.1cm)Aortic Root(2D)2.2 (2.0-3.7cm) LVDd4.8 (3.9-5.9cm)LVOT Diameter1.9 (1.8-2.4cm) PWd0.9 (0.7-1.1cm)LVDs3.4 (2.5-4.0cm) FS (%) 28.9 %SV59.7 ml LVEF(%)55.5 (>50%) Aortic Valve AoV Peak Davis.160.3cm/sAoV VTI36.4cm AO Peak GR.10.3mmHgLVOT Peak Davis.109.7cm/s AO Mean GR.6mmHgAVA (VMAX)2.01cm2 STEFAN (VTI)2.00cm2 Mitral Valve MV E Fkjauyqn592.4cm/sMV DECEL [id number] MV A Wslfryhz28.0cm/sE/A Ratio1.4 Pulmonary Vein S1 Usoqvtiy82.2cm/sD2 Helznsnd83.1cm/s LEFT VENTRICLE The left ventricle is normal size. There is normal left ventricular wall thickness. Left ventricle sy stolic function is normal. The Ejection Fraction is 50-55%. There is normal LV segmental wall motion. Transmitral Doppler flow pattern is Grade II-pseudonormal filling dynamics. RIGHT VENTRICLE The right ventricle is normal size. The right ventricular systolic function is normal. ATRIA The left atrium size is normal. The right atrium size is normal. The interatrial septum is intact wit h no evidence for an atrial septal defect or patent foramen ovale as noted on 2-D or Doppler imaging. AORTIC VALVE The aortic valve is calcified but opens well. Doppler and Color Flow revealed no significant aortic r egurgitation. There is no significant aortic valvular stenosis. MITRAL VALVE The mitral valve is normal in structure and function. There is no evidence of mitral valve prolapse. There is no mitral valve stenosis. Doppler and Color-flow revealed trace mitral regurgitation. TRICUSPID VALVE The tricuspid valve is normal in structure and function. Doppler and Color Flow revealed no tricuspid valve regurgitation noted. There is no tricuspid valve stenosis. PULMONIC VALVE The pulmonic valve is not well visualized. Doppler and Color Flow revealed no pulmonic valvular regur gitation. There is no pulmonic valvular stenosis. GREAT VESSELS The aortic root is normal in size. The ascending aorta is normal in size. The IVC is normal in size a nd collapses >50% with inspiration. PERICARDIAL EFFUSION There is no evidence of significant pericardial effusion. Critical Notification Critical Value: No <Conclusion> The left ventricle is normal size. Left ventricle systolic function is normal. The Ejection Fraction is 50-55%. There is normal LV segmental wall motion. There is no significant aortic valvular stenosis. Doppler and Color Flow revealed no significant aortic regurgitation. Doppler and Color-flow revealed trace mitral regurgitation. Doppler and Color Flow revealed no tricuspid valve regurgitation noted. Signed by : Richard Lafleur MD Electronically Approved : 09/20/2018 14:39:53
[2018-09-20 15:00] VITALS: BP 117/72
--- NOTE | 2018-09-20 19:44 | NUR ---
Per verbal conversation with primary physician earlier today, patient may discharge home once cardiology visits with patient and ok discharge. Cardiology saw patient approximately 1730 and ok'd patient to discharge home. This RN attempted to page primary 3 X's with no response. Patient stated that she was going to sign herself out because the doctor told her she could dc home tonight. This RN Pgd primary for the 4th time and recvd return call from observation nurse physician who stated that he is not familiar with patient but based on notes and results, patient is ok to discharge with no changes to home medication. This RN placed discharge order. Reviewed papers, medication list and provided education to patient on pain management. Signd discharge papers are in chart. Patient accompanied by spouse and left by wheelchair.
[2018-09-20] MEDS ORDERED: LIDOCAINE (700MG/PATCH) PATCH. TD SCH (21:00)
[2018-09-20] MEDS ORDERED: ATORVASTATIN CALCIUM 20 MG TABLET PO SCH (21:00)
== END 2018-09-20 19:49 | disposition home or self-care (01) | DRG 206 ==
LOC: ER 15:51 → 2 NORTH 16:50
PROVIDERS: ADMIT Internal Medicine; ATTEND Internal Medicine
DX: M94.0 Chondrocostal junction syndrome [Tietze] (principal); Z68.42 Body mass index [BMI] 45.0-49.9, adult; I20.9 Angina pectoris, unspecified; M79.7 Fibromyalgia; K21.9 Gastro-esophageal reflux disease without esophagitis; I10 Essential (primary) hypertension; F41.9 Anxiety disorder, unspecified; F32.9 Major depressive disorder, single episode, unspecified; E78.00 Pure hypercholesterolemia, unspecified; E78.5 Hyperlipidemia, unspecified; M19.90 Unspecified osteoarthritis, unspecified site; E11.9 Type 2 diabetes mellitus without complications; E66.01 Morbid (severe) obesity due to excess calories; G89.29 Other chronic pain; J44.9 Chronic obstructive pulmonary disease, unspecified; Z87.11 Personal history of peptic ulcer disease; Z82.49 Family history of ischemic heart disease and other diseases of the circulatory system
CPT/HCPCS: 36415; 71046; 80053; 80061; 81001; 83735; 84443; 84484; 85025; 93005; 93306; J3010; 99285-25

== ENCOUNTER → 2019-03-12 | Outpatient (CLI) | payer OTHER ==
[~2019-03-12] MED LIST changes: +AMLO5TAB10 PO; +GABA800T5 PO; +HYDR25TA10 PO; +MONT10TA49 PO; -MONT10TA9 PO; +OXYB5TAB10 PO; +OXYB5TAB2 PO; -OXYB5TAB7 PO; -PANT40TA3 PO; +PANT40TA77 PO; +POTA10TA PO; +SERT100T8 PO; +SIMV10TA15 PO; -SIMV10TA3 PO; +SIMV20TA18 PO; +TIZA2TAB2 PO; +TRAZ-118 PO
--- NOTE | 2019-03-12 14:09 | KCIC ---
Bilateral digital screening mammograms with 3-D tomosynthesis: Reason for examination: Routine screening. Comparison is made to previous studies dated 03/08/2018 and 02/12/2014. Bilateral mammograms in CC and oblique projections were obtained with 2-D imaging and 3-D tomosynthesis imaging on a Siemens Inspiration unit and reviewed on the workstation. Interpretation was made with the benefit of CAD. The skin and nipples show no abnormalities. No abnormal axillary lymph nodes are seen. The breast parenchyma shows scattered fatty and fibroglandular density. (Breast density: Category B.) There are no dominant masses, suspicious calcifications or architectural distortion. Benign secretory type calcifications are present. Impression: No evidence of malignancy. Recommend routine screening. BI-RAD Category 2: Benign. "Our facility is accredited by the [employer] Mammography [employer]." This patient's information has been entered into a reminder system for the patient to be notified with the results of her examination and a target date for the next mammogram. Electronically signed by: Sonam Cutler MD (03/12/2019 2:06 PM) [id number]
== END | disposition home or self-care (01) ==
LOC: KCIC MAMMO 10:49
PROVIDERS: ATTEND Internal Medicine
DX: Z12.31 Encounter for screening mammogram for malignant neoplasm of breast (principal); N64.89 Other specified disorders of breast
CPT/HCPCS: 77063; 77067

== ENCOUNTER → 2020-03-18 | Outpatient (CLI) | payer OTHER ==
[~2020-03-18] MED LIST changes: +AMLO-186 PO; +AMLO-187 PO; -AMLO10TA8 PO; -AMLO5TAB10 PO; +MECL-75 PO; -MECL25TA3 PO; +OXYB-36 PO; -OXYB5TAB2 PO; -TIZA2TAB2 PO; +TIZA2TAB4 PO
--- NOTE | 2020-03-18 16:43 | KCIC ---
Bilateral digital screening mammograms with 3-D tomosynthesis: Reason for examination: Routine screening. Comparison is made to previous studies dated back to 02/12/2014. Bilateral mammograms in CC and oblique projections were obtained with 2-D imaging and 3-D tomosynthesis imaging on a Siemens Inspiration unit and reviewed on the workstation. Interpretation was made with the benefit of CAD. The skin and nipples show no abnormalities. No abnormal axillary lymph nodes are seen. The breast parenchyma shows scattered fatty and fibroglandular density. (Breast density: Category B.) There are no dominant masses, suspicious calcifications or architectural distortion. Benign calcifications are present. Impression: No evidence of malignancy. Recommend routine screening. BI-RAD Category 2: Benign. "Our facility is accredited by the [employer] Mammography [employer]." This patient's information has been entered into a reminder system for the patient to be notified with the results of her examination and a target date for the next mammogram. Electronically signed by: Sonam Cutler MD (03/18/2020 4:40 PM) [id number]
== END ==
LOC: KCIC MAMMO 13:29
PROVIDERS: ATTEND Internal Medicine
DX: Z12.31 Encounter for screening mammogram for malignant neoplasm of breast (principal)
CPT/HCPCS: 77063; 77067

== ENCOUNTER → 2020-03-26 | Outpatient (CLI) | payer OTHER ==
--- NOTE | 2020-03-26 15:20 | KCIC ---
Study: 1. CR LUMBAR SPINE 1V 2. CR KNEE BILAT 2V Indication: Bilateral knee pain. Low back pain. Comparison: None. Findings: Lumbar spine: Only an AP view is submitted. No significant curvature in the coronal plane. Partial sacralization of L5 with a pseudoarticulation on the left. Incompletely characterized discogenic arthrosis from L3-L4 through L5-S1 as well as lower lumbar facet degeneration. Degenerative sclerosis along the lower aspect of the left SI joint. Knees: The left knee exhibits moderate lateral and mild medial femorotibial compartment joint space narrowing and lateral larger than medial joint line osteophytes. Small patellar osteophytes seen on the lateral view as well as an enthesophyte at the quadriceps insertion. Suspected small knee joint effusion on the left. On the right, moderate medial and mild lateral femorotibial compartment joint space narrowing and joint line osteophytes. Small patellar osteophytes seen on the lateral view as well as an enthesophyte at the quadriceps insertion. Possible trace knee joint effusion. No acute fracture or aggressive osseous process seen on either side. Chondrocalcinosis on the left and potentially faintly on the right as well. Impression: Lumbar spine: 1. Partially evaluated with only an AP view submitted. Discogenic arthrosis and facet degeneration appearing more pronounced at L4-L5 and L5-S1 than at L3-L4. Knees: 1. Mild/moderate tricompartmental osteoarthrosis involving both knees. No acute osseous abnormality. Electronically signed by: KIP NEGRO MD (03/26/2020 3:18 PM) [id number]
== END ==
LOC: KCIC 10:46
PROVIDERS: ATTEND Internal Medicine Rheumatology
DX: M47.817 Spondylosis without myelopathy or radiculopathy, lumbosacral region (principal); M17.0 Bilateral primary osteoarthritis of knee; M77.8 Other enthesopathies, not elsewhere classified; M25.761 Osteophyte, right knee; M25.462 Effusion, left knee
CPT/HCPCS: 72020; 73560

== ENCOUNTER 2020-03-31 11:58 | Emergency (ER) | payer OTHER ==
[~2020-03-31] VITALS: Ht 162.6 cm; Wt 127.2 kg
--- NOTE | 2020-03-31 13:00 | RAD ---
INDICATION: Reason: chest pain / Spl. Instructions: / History: COMPARISON: September 19, 2018 FINDINGS: Single view of chest obtained. Enlarged cardiomediastinal silhouette is similar to prior. Left lung base is obscured by the overlying cardiac silhouette. Mild interstitial prominence without definite focal airspace consolidation IMPRESSION: * Hypoexpanded exam with mild interstitial prominence which could be from crowding of the vascular markings from hypoexpansion. A definite focal airspace consolidation is not seen. Electronically signed by: Nate Elkins MD (03/31/2020 12:57 PM) [id number]
[2020-03-31 13:37] LABS: BASO # 0.1 x10^3/uL (0.0-0.2); BASO % 1 % (0-3); EOS # 0.1 x10^3/uL (0.0-0.7); EOS % 3 % (0-3); HEMATOCRIT 41.3 % (36.0-47.0); HEMOGLOBIN 13.9 g/dL (12.0-15.5); LYMPH # 1.3 x10^3/uL (1.0-4.8); LYMPH % 31 % (24-48); MEAN CORPUSCULAR HEMOGLOBIN 28 pg (25-35); MEAN CORPUSCULAR HGB CONC 34 g/dL (31-37); MEAN CORPUSCULAR VOLUME 83 fL (79-100); MONO # 0.4 x10^3/uL (0.0-1.1); MONO % 11 % (0-9); NEUT # 2.3 x10^3/uL (1.8-7.7); NEUT % 55 % (31-73); PLATELET COUNT 238 x10^3/uL (140-400); RED BLOOD COUNT 4.95 x10^6/uL (3.50-5.40); RED CELL DISTRIBUTION WIDTH 14.7 % (11.5-14.5); WHITE BLOOD COUNT 4.2 x10^3/uL (4.0-11.0)
[2020-03-31 13:47] LABS: ALBUMIN 3.5 g/dL (3.4-5.0); ALBUMIN/GLOBULIN RATIO 0.9 (1.0-1.7); CALCIUM 9.3 mg/dL (8.5-10.1); CREATININE 1.1 mg/dL (0.6-1.0); GFR 61.1; MAGNESIUM 2.4 mg/dL (1.8-2.4); TOTAL BILIRUBIN 0.3 mg/dL (0.2-1.0); TOTAL PROTEIN 7.2 g/dL (6.4-8.2)
[2020-03-31 14:15] VITALS: BP 136/67
[2020-03-31] MEDS ORDERED: POTASSIUM CHLORIDE 10 MEQ TABLET.ER. PO ONE (14:30)
[2020-03-31] MEDS ORDERED: POTASSIUM CHLORIDE 20 MEQ TABLET.ER. PO ONE (14:30)
--- NOTE | 2020-03-31 14:46 | PHYS DOC ---
Past Medical History Past Medical History: Anxiety, Asthma, Bronchitis, Depression, Fibromyalgia, GERD, High Cholesterol, Hypertension Past Surgical History: Other Additional Past Surgical Histo: CERVICAL (DISC) REPAIR, recent colonoscopy Smoking Status: Former Smoker Additional Information: quit smoking 35 years ago Alcohol Use: None Drug Use: None General Adult EDM: Chief Complaint: CHEST PAIN HPI: HPI: Patient is a 59 year old female who presented to ER for evaluation of neck pain, shoulder pain, bilateral chest pain that been going on for a long time because of history of fibromyalgia. There Is nothing different about the pain this time however she said today she bent over to tie her shoe, she became dizzy so that concerned her. She denied any weakness or numbness, no headache, no blurry vision. She felt better when she was upright. Patient denied any cough or fever. She has no history of CAD or blood clot disorder. Review of Systems: Review of Systems: Constitutional: Denies fever or chills. [] Eyes: Denies change in visual acuity. [] HENT: Denies nasal congestion or sore throat. [] Respiratory: Denies cough or shortness of breath. [] Cardiovascular: positive for chest pain, no edema. [] GI: Denies abdominal pain, nausea, vomiting, bloody stools or diarrhea. [] : Denies dysuria. [] Musculoskeletal: Positive for upper back pain] Integument: Denies rash. [] Neurologic: Denies headache, focal weakness or sensory changes. Positive for dizziness Endocrine: Denies polyuria or polydipsia. [] Lymphatic: Denies swollen glands. [] Psychiatric: Denies depression or anxiety. [] Heart Score: HEART Score for Chest Pain: HEART Score for Chest Pain Response (Comments) Value History Slighlty/Non-Suspicious 0 ECG Normal 0 Age >45 - < 65 1 Risk Factors 1 or 2 Risk Factors 1 Troponin < Normal Limit 0 Total 2 Risk Factors: Risk Factors: DM, Current or recent (<one month) smoker, HTN, HLP, family histo ry of CAD, obesity. Risk Scores: Score 0 - 3: 2.5% MACE over next 6 weeks - Discharge Home Score 4 - 6: 20.3% MACE over next 6 weeks - Admit for Clinical Observation Score 7 - 10: 72.7% MACE over next 6 weeks - Early Invasive Strategies Current Medications: Current Medications Medications (Trade) Dose Ordered Sig/Keshia Start Time Stop Time Status Last Admin Dose Admin Potassium Chloride (Klor-Con) 40 meq 1X ONCE 03/31/20 14:30 03/31/20 14:31 DC 03/31/20 14:37 40 MEQ Allergies: Allergies: Allergies Coded Allergies Type Severity Reaction Last Updated Verified lisinopril Allergy Severe Anaphylaxis 11/26/14 Yes ciprofloxacin Allergy Intermediate Rash 03/31/20 Yes Physical Exam: PE: Constitutional: Well developed, well nourished, no acute distress, non-toxic appearance. [] HENT: Normocephalic, atraumatic, bilateral external ears normal, oropharynx moist, no oral exudates, nose normal. [] Eyes: PERRLA, EOMI, conjunctiva normal, no discharge. [] Neck: Normal range of motion, no tenderness, supple, no stridor. [] Cardiovascular:Heart rate regular rhythm, no murmur. Chest pain is reproducible to palpation. Lungs & Thorax: Bilateral breath sounds clear to auscultation [] Abdomen: Bowel sounds normal, soft, no tenderness, no masses, no pulsatile m asses. [] Skin: Warm, dry, no erythema, no rash. [] Back: No tenderness, no CVA tenderness. [] Extremities: No tenderness, no cyanosis, no clubbing, ROM intact, no edema. [] Neurologic: Alert and oriented X 3, normal motor function, normal sensory function, no focal deficits noted. [] Psychologic: Affect normal, judgement normal, mood normal. [] Current Patient Data: Labs: Laboratory Tests Test 03/31/20 13:20 White Blood Count 4.2 x10^3/uL (4.0-11.0) Red Blood Count 4.95 x10^6/uL (3.50-5.40) Hemoglobin 13.9 g/dL (12.0-15.5) Hematocrit 41.3 % (36.0-47.0) Mean Corpuscular Volume 83 fL (79-100) Mean Corpuscular Hemoglobin 28 pg (25-35) Mean Corpuscular Hemoglobin Concent 34 g/dL (31-37) Red Cell Distribution Width 14.7 % (11.5-14.5) H Platelet Count 238 x10^3/uL (140-400) Neutrophils (%) (Auto) 55 % (31-73) Lymphocytes (%) (Auto) 31 % (24-48) Monocytes (%) (Auto) 11 % (0-9) H Eosinophils (%) (Auto) 3 % (0-3) Basophils (%) (Auto) 1 % (0-3) Neutrophils # (Auto) 2.3 x10^3/uL (1.8-7.7) Lymphocytes # (Auto) 1.3 x10^3/uL (1.0-4.8) Monocytes # (Auto) 0.4 x10^3/uL (0.0-1.1) Eosinophils # (Auto) 0.1 x10^3/uL (0.0-0.7) Basophils # (Auto) 0.1 x10^3/uL (0.0-0.2) Sodium Level 141 mmol/L (136-145) Potassium Level 3.0 mmol/L (3.5-5.1) L Chloride Level 103 mmol/L (98-107) Carbon Dioxide Level 29 mmol/L (21-32) Anion Gap 9 (6-14) Blood Urea Nitrogen 16 mg/dL (7-20) Creatinine 1.1 mg/dL (0.6-1.0) H Estimated GFR (Cockcroft-Gault) 61.1 BUN/Creatinine Ratio 15 (6-20) Glucose Level 98 mg/dL (70-99) Calcium Level 9.3 mg/dL (8.5-10.1) Magnesium Level 2.4 mg/dL (1.8-2.4) Total Bilirubin 0.3 mg/dL (0.2-1.0) Aspartate Amino Transferase (AST) 14 U/L (15-37) L Alanine Aminotransferase (ALT) 17 U/L (14-59) Alkaline Phosphatase 72 U/L (46-116) Troponin I Quantitative < 0.017 ng/mL (0.000-0.055) LB-Fzm-H-Type Natriuretic Peptide 24 pg/mL (0-124) Total Protein 7.2 g/dL (6.4-8.2) Albumin 3.5 g/dL (3.4-5.0) Albumin/Globulin Ratio 0.9 (1.0-1.7) L Lipase 105 U/L (73-393) Laboratory Tests 03/31/20 13:20 Laboratory Tests 03/31/20 13:20 Vital Signs: Vital Signs Date Time Temp Pulse Resp B/P (MAP) Pulse Ox O2 Delivery O2 Flow Rate FiO2 03/31/20 12:20 99.1 91 20 140/70 (93) 99 Room Air 99.1 EKG: EKG: EKG was done at 1207, heart rate of 1207 BPM, NSR, NO STEMI Radiology/Procedures: Radiology/Procedures: [][facility] [address] [place] [address] IMAGING REPORT Signed PATIENT: ERIBERTO OLEAOUNT: [id number] : 1960 LOCATION: ER AGE: 59 SEX: F EXAM STATUS: REG ER ORD. PHYSICIAN: RADHA LO DO REASON: chest pain PROCEDURE: PORTABLE CHEST 1V INDICATION: Reason: chest pain / Spl. Instructions: / History: COMPARISON: September 19, 2018 FINDINGS: Single view of chest obtained. Enlarged cardiomediastinal silhouette is similar to prior. Left lung base is obscured by the overlying cardiac silhouette. Mild interstitial prominence without definite focal airspace consolidation IMPRESSION: * Hypoexpanded exam with mild interstitial prominence which could be from crowding of the vascular markings from hypoexpansion. A definite focal airspace consolidation is not seen. Electronically signed by: Taylor Keating MD (03/31/2020 12:57 PM) [id number] DICTATED and SIGNED BY: TAYLOR KEATING MD DATE: 03/31/20 [id number] 0 Course & Med Decision Making: Course & Med Decision Making Pertinent Labs and Imaging studies reviewed. (See chart for details) Patient is a 59-year-old female who presented to ER with chest pain, noncardiac in nature. Her lab work come back mostly normal, EKG was normal as well. Her potassium level was low, she was given potassium supplement in the ER, she was in no acute distress. She did complain of dizziness when she bent over to tie her shoe. She felt better when she was upright. No headache, no focal neurological deficit. We will discharge her home. Mee Disclaimer: Mee Disclaimer: This electronic medical record was generated, in whole or in part, using a voice recognition dictation system. Departure Departure Impression: Primary Impression: Hypokalemia Additional Impressions: Musculoskeletal chest pain Dizziness Disposition: 01 DC HOME SELF CARE/HOMELESS Condition: IMPROVED Referrals: GAGE MALIK MD (PCP) PLEASE CALL YOUR DOCTOR FOR FOLLOW UP THIS WEEK. Patient Instructions: Dizziness, Hypokalemia, Musculoskeletal Pain Additional Instructions: Thank you for visiting our Emergency Department. We appreciate you trusting us with your care. If any additional problems come up don't hesitate to return to visit us. Please follow up with your primary care provider so they can plan additional care if needed and know about the problem that you had. If symptoms worsen come back to the Emergency Department. Any concerning symptoms that start such as chest pain, shortness of air, weakness or numbness on one side of the body, running high fevers or any other concerning symptoms return to the ER. RADHA LO DO Mar 31, 2020 14:46
== END 2020-03-31 15:18 | disposition home or self-care (01) ==
LOC: ER 11:58
DX: E87.6 Hypokalemia (principal); R07.89 Other chest pain; R42 Dizziness and giddiness; M54.2 Cervicalgia; F41.9 Anxiety disorder, unspecified; J45.909 Unspecified asthma, uncomplicated; F32.9 Major depressive disorder, single episode, unspecified; M79.7 Fibromyalgia; K21.9 Gastro-esophageal reflux disease without esophagitis; E78.00 Pure hypercholesterolemia, unspecified; I10 Essential (primary) hypertension; Z98.890 Other specified postprocedural states; Z87.891 Personal history of nicotine dependence; Z88.1 Allergy status to other antibiotic agents; Z88.8 Allergy status to other drugs, medicaments and biological substances
CPT/HCPCS: 36415; 71045; 80053; 83690; 83735; 83880; 84484; 85025; 99285

== ENCOUNTER 2020-04-02 13:52 | Emergency (ER) | payer OTHER ==
[~2020-04-02] VITALS: Ht 162.6 cm; Wt 131.0 kg
[2020-04-02] MEDS ORDERED: ASPIRIN 325 MG TABLET PO ONE (14:15)
[2020-04-02] MEDS ORDERED: MORPHINE SULFATE 4 MG/ML VIAL. IV/SQ PRN (14:15)
[2020-04-02 14:32] LABS: BASO % 0 % (0-3); EOS # 0.1 x10^3/uL (0.0-0.7); EOS % 3 % (0-3); HEMATOCRIT 41.1 % (36.0-47.0); LYMPH # 1.8 x10^3/uL (1.0-4.8); LYMPH % 36 % (24-48); MEAN CORPUSCULAR HEMOGLOBIN 28 pg (25-35); MEAN CORPUSCULAR HGB CONC 34 g/dL (31-37); MEAN CORPUSCULAR VOLUME 83 fL (79-100); MONO # 0.5 x10^3/uL (0.0-1.1); MONO % 10 % (0-9); NEUT # 2.5 x10^3/uL (1.8-7.7); NEUT % 51 % (31-73); PLATELET COUNT 243 x10^3/uL (140-400); RED BLOOD COUNT 4.98 x10^6/uL (3.50-5.40); RED CELL DISTRIBUTION WIDTH 14.5 % (11.5-14.5); WHITE BLOOD COUNT 4.9 x10^3/uL (4.0-11.0)
[2020-04-02 14:41] LABS: CALCIUM 9.2 mg/dL (8.5-10.1); GFR 68.2; POTASSIUM 3.2 mmol/L (3.5-5.1); PROTHROMBIN TIME PATIENT 13.4 SEC (11.7-14.0)
[2020-04-02 14:45] LABS: D-DIMER 0.51 ug/mlFEU (0.00-0.50)
[2020-04-02] MEDS ORDERED: IOHEXOL 350 MG/ML 100 ML VIAL. IV ONE (14:45)
[2020-04-02] MEDS ORDERED: CONTRAST GIVEN. MC PRN (14:45)
[2020-04-02 14:47] LABS: ALBUMIN 3.8 g/dL (3.4-5.0); ALBUMIN/GLOBULIN RATIO 1.1 (1.0-1.7); MAGNESIUM 2.2 mg/dL (1.8-2.4); TOTAL BILIRUBIN 0.4 mg/dL (0.2-1.0); TOTAL PROTEIN 7.3 g/dL (6.4-8.2)
--- NOTE | 2020-04-02 15:28 | PHYS DOC ---
Past Medical History Past Medical History: Anxiety, Asthma, Bronchitis, Depression, Fibromyalgia, GERD, High Cholesterol, Hypertension Past Surgical History: Other Additional Past Surgical Histo: CERVICAL (DISC) REPAIR, recent colonoscopy Smoking Status: Former Smoker Alcohol Use: None Drug Use: None General Adult EDM: Chief Complaint: SHORTNESS OF BREATH HPI: HPI: Patient is a 59 year old female with history of fibromyalgia, anxiety, depression, hypertension, high cholesterol, overweight, who presents to the ED today complaining of shortness of breath, dizziness, chest pain, symptoms on and off since Tuesday. Patient states she was evaluated in the ED for the same s ymptoms on Tuesday, she states she had negative work-up and was sent home. She states she saw the PCP today and had an elevated D-dimer and was sent to the ED for CT of the chest and venous Dopplers of bilateral lower extremities. She is denying any chest pain right now. Patient is very conversational mostly talking about other things not related to today's visit. Review of Systems: Review of Systems: Constitutional: Denies fever or chills. [] Eyes: Denies change in visual acuity. [] HENT: Denies nasal congestion or sore throat. [] Respiratory: Reports shortness of breath. Denies cough Cardiovascular: Reports chest pain. GI: Denies abdominal pain, nausea, vomiting, bloody stools or diarrhea. [] : Denies dysuria. [] Musculoskeletal: Denies back pain or joint pain. [] Integument: Denies rash. [] Neurologic: Reports dizziness. Denies headache, focal weakness or sensory changes. [] Psychiatric: Denies depression or anxiety. [] Heart Score: HEART Score for Chest Pain: HEART Score for Chest Pain Response (Comments) Value History Slighlty/Non-Suspicious 0 ECG Normal 0 Age >45 - < 65 1 Risk Factors 1 or 2 Risk Factors 1 Troponin < Normal Limit 0 Total 2 Risk Factors: Risk Factors: DM, Current or recent (<one month) smoker, HTN, HLP, family history of CAD, obesity. Risk Scores: Score 0 - 3: 2.5% MACE over next 6 weeks - Discharge Home Score 4 - 6: 20.3% MACE over next 6 weeks - Admit for Clinical Observation Score 7 - 10: 72.7% MACE over next 6 weeks - Early Invasive Strategies Current Medications: Current Medications Medications (Trade) Dose Ordered Sig/Keshia Start Time Stop Time Status Last Admin Dose Admin Aspirin (Eliel Aspirin) 325 mg 1X ONCE 04/02/20 14:15 04/02/20 14:24 DC 04/02/20 14:46 325 MG Info (CONTRAST GIVEN -- Rx MONITORING) 1 each PRN DAILY PRN 04/02/20 14:45 04/04/20 14:44 Iohexol (Omnipaque 350 Mg/ml) 100 ml 1X ONCE 04/02/20 14:45 04/02/20 14:46 DC 04/02/20 14:45 100 ML Morphine Sulfate (Morphine Sulfate) 4 mg PRN Q15MIN PRN 04/02/20 14:15 04/03/20 14:14 Allergies: Allergies: Allergies Coded Allergies Type Severity Reaction Last Updated Verified lisinopril Allergy Severe Anaphylaxis 11/26/14 Yes ciprofloxacin Allergy Intermediate Rash 03/31/20 Yes Physical Exam: PE: Constitutional: Morbidly obese patient, no acute distress, non-toxic appearance. [] HENT: Normocephalic, atraumatic, bilateral external ears normal, oropharynx moist, no oral exudates, nose normal. [] Eyes: PERRLA, EOMI, conjunctiva normal, no discharge. [] Neck: Normal range of motion, no tenderness, supple, no stridor. [] Cardiovascular:Heart rate regular rhythm, no murmur [] Lungs & Thorax: Bilateral breath sounds clear to auscultation [] Abdomen: Bowel sounds normal, soft, no tenderness, no masses, no pulsatile m asses. [] Skin: Warm, dry, no erythema, no rash. [] Back: No tenderness, no CVA tenderness. [] Extremities: No tenderness, no cyanosis, no clubbing, ROM intact, no edema. [] Neurologic: Alert and oriented X 3, normal motor function, normal sensory function, no focal deficits noted. Cranial nerves II through XII intact Psychologic: Affect normal, judgement normal, mood normal. [] Current Patient Data: Labs: Laboratory Tests Test 04/02/20 14:20 White Blood Count 4.9 x10^3/uL (4.0-11.0) Red Blood Count 4.98 x10^6/uL (3.50-5.40) Hemoglobin 14.0 g/dL (12.0-15.5) Hematocrit 41.1 % (36.0-47.0) Mean Corpuscular Volume 83 fL (79-100) Mean Corpuscular Hemoglobin 28 pg (25-35) Mean Corpuscular Hemoglobin Concent 34 g/dL (31-37) Red Cell Distribution Width 14.5 % (11.5-14.5) Platelet Count 243 x10^3/uL (140-400) Neutrophils (%) (Auto) 51 % (31-73) Lymphocytes (%) (Auto) 36 % (24-48) Monocytes (%) (Auto) 10 % (0-9) H Eosinophils (%) (Auto) 3 % (0-3) Basophils (%) (Auto) 0 % (0-3) Neutrophils # (Auto) 2.5 x10^3/uL (1.8-7.7) Lymphocytes # (Auto) 1.8 x10^3/uL (1.0-4.8) Monocytes # (Auto) 0.5 x10^3/uL (0.0-1.1) Eosinophils # (Auto) 0.1 x10^3/uL (0.0-0.7) Basophils # (Auto) 0.0 x10^3/uL (0.0-0.2) Prothrombin Time 13.4 SEC (11.7-14.0) Prothrombin Time INR 1.1 (0.8-1.1) Activated Partial Thromboplast Time 29 SEC (24-38) D-Dimer (Solange) 0.51 ug/mlFEU (0.00-0.50) H Sodium Level 142 mmol/L (136-145) Potassium Level 3.2 mmol/L (3.5-5.1) L Chloride Level 102 mmol/L (98-107) Carbon Dioxide Level 29 mmol/L (21-32) Anion Gap 11 (6-14) Blood Urea Nitrogen 13 mg/dL (7-20) Creatinine 1.0 mg/dL (0.6-1.0) Estimated GFR (Cockcroft-Gault) 68.2 BUN/Creatinine Ratio 13 (6-20) Glucose Level 99 mg/dL (70-99) Calcium Level 9.2 mg/dL (8.5-10.1) Magnesium Level 2.2 mg/dL (1.8-2.4) Total Bilirubin 0.4 mg/dL (0.2-1.0) Aspartate Amino Transferase (AST) 17 U/L (15-37) Alanine Aminotransferase (ALT) 19 U/L (14-59) Alkaline Phosphatase 75 U/L (46-116) Troponin I Quantitative < 0.017 ng/mL (0.000-0.055) LP-Pso-U-Type Natriuretic Peptide 44 pg/mL (0-124) Total Protein 7.3 g/dL (6.4-8.2) Albumin 3.8 g/dL (3.4-5.0) Albumin/Globulin Ratio 1.1 (1.0-1.7) Thyroid Stimulating Hormone (TSH) 1.277 uIU/mL (0.358-3.74) Laboratory Tests 04/02/20 14:20 Laboratory Tests 04/02/20 14:20 Vital Signs: Vital Signs Date Time Temp Pulse Resp B/P (MAP) Pulse Ox O2 Delivery O2 Flow Rate FiO2 04/02/20 14:11 98.5 103 22 147/102 (117) 99 Room Air 98.5 EKG: EKG: [] Radiology/Procedures: Radiology/Procedures: []PROCEDURE: VENOUS LOWER EXT BILATERAL EXAM: Bilateral lower extremity venous Doppler. HISTORY: Bilateral lower extremity pain/swelling. COMPARISON: None. FINDINGS: Grayscale and Doppler analysis of the both lower extremity deep venous systems was performed with graded compression and augmentation. The common femoral, greater saphenous, superficial femoral, popliteal and calf veins were assessed. Visualization was limited by habitus. There is no evidence of deep venous thrombosis. IMPRESSION: 1. No evidence of deep venous thrombosis. Electronically signed by: Deepti Franklin MD (04/02/2020 4:00 PM) [id number] DICTATED and SIGNED BY: ALYSSA FRANKLIN MD DATE: 04/02/20 [id number] 0 PROCEDURE: CT ANGIOGRAPHY CHEST CTA Chest with contrast: Clinical History: Reason: SOA / Spl. Instructions: [id number] 100ML / History: Shortness of breath. Axial helical images of the chest were obtained after the administration of 100 cc of IV Omni 350 and timed appropriately for a pulmonary arterial study. Conventional axial reconstruction was performed in addition to coronal, sagittal and bilateral oblique MIP (maximum intensity projection). This study was ordered to detect possible pulmonary embolism. There are no filling defects to suggest pulmonary embolism. The more peripheral subsegmental pulmonary arteries are not well opacified limiting our sensitivity for small peripheral pulmonary emboli. The lungs and pleural margins are clear. There is no mediastinal or hilar lymphadenopathy. The thoracic aorta appears normal. Impression: 1. No evidence of pulmonary embolism. 2. No significant findings. PQRS Compliance Statement: One or more of the following individualized dose reduction techniques were utilized for this examination: 1. Automated exposure control 2. Adjustment of the mA and/or kV according to patient size 3. Use of iterative reconstruction technique Electronically signed by: Sloan Mclaughlin III, MD (04/02/2020 3:26 PM) [facility] DICTATED and SIGNED BY: SLOAN MCLAUGHLIN III, MD DATE: 04/02/20 [id number] 0 Course & Med Decision Making: Course & Med Decision Making Pertinent Labs and Imaging studies reviewed. (See chart for details) This is a 59-year-old female patient presenting to the ED today complaining of shortness of breath, chest pain and dizziness since Tuesday. She was seen in the ED on Tuesday for the same complaints. She went to the doctor's office today and she states her D-dimer was elevated and she was sent to the ED to have a CT of the chest as well as Dopplers of bilateral lower extremities. She is denying any chest pain in the ED. EKG is negative, troponin is normal, CBC with no acute findings, CMP with potassium of 3.2, patient was given 40 mEq of potassium p.o. in the ED. CT angio of the chest and bilateral lower extremities venous Dopplers are negative for any acute findings. Patient vitals are stable she is not in any distress. Her heart score is 2. She has no chest pain, she has good follow-up, I also recommended she sees a catalyst operator which I provided. Discharged home. Dragon Disclaimer: Mee Disclaimer: This electronic medical record was generated, in whole or in part, using a voice recognition dictation system. Departure Departure Impression: Primary Impression: Shortness of breath Additional Impressions: Hypokalemia Person under investigation for COVID-19 Disposition: 01 DC HOME SELF CARE/HOMELESS Condition: STABLE Referrals: GAGE MALIK MD (PCP) Follow-up with your doctor in the course of this week DARVIN JOYCE MD follow up in one week Patient Instructions: Hypokalemia-Brief, Shortness of Breath, [id number] Additional Instructions: You were evaluated in the emergency room, you had a CAT scan of your chest as well as bilateral lower extremities venous Dopplers which were both negative. Your potassium was 3.2, we gave you oral potassium replacement. Please follow- up with the provided catalyst operator as well as your primary care doctor in the co urse of this week. Come back to the ED at any point symptoms worsen. We tested you for COVID-19, quarantine yourself until you get results from us. KURT WOOD TACKER OFF Apr 02, 2020 15:28
[2020-04-02] MEDS ORDERED: POTASSIUM CHLORIDE 20 MEQ TABLET.ER. PO ONE (16:00)
--- NOTE | 2020-04-02 16:03 | RAD ---
EXAM: Bilateral lower extremity venous Doppler. HISTORY: Bilateral lower extremity pain/swelling. COMPARISON: None. FINDINGS: Grayscale and Doppler analysis of the both lower extremity deep venous systems was performed with graded compression and augmentation. The common femoral, greater saphenous, superficial femoral, popliteal and calf veins were assessed. Visualization was limited by habitus. There is no evidence of deep venous thrombosis. IMPRESSION: 1. No evidence of deep venous thrombosis. Electronically signed by: Deepti Franklin MD (04/02/2020 4:00 PM) [id number]
[2020-04-02 16:55] VITALS: BP 172/89
[2020-04-02 17:52] LABS: BILIRUBIN,URINE NEGATIVE (NEG); CLARITY,URINE CLEAR; COLOR,URINE YELLOW; NITRITE,URINE NEGATIVE (NEG); PH,URINE 6.5 (<5.0-8.0); PROTEIN,URINE NEGATIVE (NEG-TRACE); UROBILINOGEN,URINE 0.2 mg/dL (0.2 mg/dL)
[2020-04-02 17:59] LABS: BARBITURATES NEG (NEG); BENZODIAZEPINES NEG (NEG); CANNABINOIDS NEG (NEG); COCAINE NEG (NEG); METHADONE NEG (NEG); OPIATES NEG (NEG); PHENCYCLIDINE NEG (NEG)
[2020-04-02 18:00] LABS: AMPHETAMINE/METHAMPHETAMINE NEG (NEG)
[2020-04-02 18:31] LABS: BACTERIA,URINE 0 /HPF (0-FEW); RBC,URINE 0 /HPF (0-2); WBC,URINE 0 /HPF (0-4)
--- NOTE | 2020-04-07 09:23 | EKG ---
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
== END 2020-04-02 17:12 | disposition home or self-care (01) ==
LOC: ER 13:52
DX: R06.02 Shortness of breath (principal); E87.6 Hypokalemia; R42 Dizziness and giddiness; R07.89 Other chest pain; J45.909 Unspecified asthma, uncomplicated; K21.9 Gastro-esophageal reflux disease without esophagitis; I10 Essential (primary) hypertension; E78.00 Pure hypercholesterolemia, unspecified; Z87.891 Personal history of nicotine dependence; Z88.1 Allergy status to other antibiotic agents; Z88.8 Allergy status to other drugs, medicaments and biological substances
CPT/HCPCS: 36415; 71275; 80053; 80307; 81001; 83735; 83880; 84443; 84484; 85025; 85379; 85610; 85730; 93005; 93970; 99285; Q9967

== ENCOUNTER → 2021-09-25 | Outpatient (CLI) | payer OTHER ==
[~2021-09-25] MED LIST changes: -DOXY100C2 PO; +DOXY100C3 PO; -FLUT100D IH; +FLUT100D2 IH; +SERT-268 PO; -SERT100T8 PO; +TIZA-58 PO; -TIZA2TAB4 PO
--- NOTE | 2021-09-25 14:17 | KCIC ---
BILATERAL SCREENING MAMMOGRAM, 3-D History: Routine screening. Comparison: Bilateral mammogram March 18, 2020. Technique: MLO and CC digital tomosynthesis (3D) images obtained. Radiologist reviewed these images on dedicated workstation. Findings: Breast Tissue Density B : There are scattered areas of fibroglandular density. There is a cluster of microcalcifications in the lower inner anterior left breast that has increased from prior study. There are no dominant masses or architectural distortion. IMPRESSION: Cluster of microcalcifications in the lower inner anterior left breast. Recommend spot magnification CC and ML digital views. BI-RADS Category 0: Incomplete: Need additional imaging evaluation. The images were reviewed with computer-aided detection. Patient information is entered into reminder system with a target due date for the next screening [facility] mogram. Mammography is the most sensitive method for finding small breast cancers, but it does not detect the m all and is not a substitute for careful clinical examination. A negative mammogram does not negate a clinically suspicious finding and should not result in delay in biopsying a clinically suspicious a bnormality. "Our facility is accredited by the [employer] Mammography Program." Electronically signed by: Fredy Diane MD (09/25/2021 2:15 PM) [id number]
== END ==
LOC: KCIC MAMMO 10:41
PROVIDERS: ATTEND Family Medicine
DX: Z12.31 Encounter for screening mammogram for malignant neoplasm of breast (principal)
CPT/HCPCS: 77063; 77067